=== PATIENT | male | born 1955 | race Caucasian/White ===

== ENCOUNTER 2016-11-04 17:08 | Emergency (ER) | payer OTHER ==
[~2016-11-04] VITALS: Ht 185.4 cm; Wt 90.7 kg
[2016-11-04 15:52] LABS: BASO % 0.6 % (0.0-1.0); EOS # 0.1 10*3/uL (0.0-0.4); HEMATOCRIT 30.3 % (42.0-52.0); HEMOGLOBIN 9.6 g/dl (14.0-18.0); LYMPH # 1.1 10*3/uL (1.3-4.4); LYMPH % 31.5 % (27.0-41.0); MEAN CELL VOLUME 93.2 fl (80.0-94.0); MEAN CORPUSCULAR HGB 29.5 pg (27.0-31.0); MEAN CORPUSCULAR HGB CONC 31.7 g/dl (33.0-37.0); MEAN PLATELET VOLUME 10.5 fl (9.6-12.3); MONO # 0.6 10*3/uL (0.1-1.0); MONO % 16.2 % (3.0-9.0); NEUT # 1.7 10*3/uL (2.3-7.9); NEUT % 49.4 % (47.0-73.0); PLATELET COUNT AUTOMATED 164 10*3/uL (130-400); RED BLOOD COUNT 3.25 10*6/uL (4.50-5.90); RED CELL DISTRI WIDTH 16.1 % (0-14.5); WHITE BLOOD COUNT 3.5 10*3/uL (4.8-10.8)
[2016-11-04 16:07] LABS: ALBUMIN 3.6 gm/dl (3.1-4.5); ALKALINE PHOSPHATASE 63 U/L (45-117); BILIRUBIN, TOTAL 0.1 mg/dl (0.2-1.0); BUN 36 mg/dl (7-24); CARBON DIOXIDE 20 mmol/L (21-32); CHLORIDE 111 mmol/L (98-107); EST GLOM FILT AFRICAN AMERICAN > 60 ml/min; GLUCOSE 165 mg/dL (65-99); SGOT/AST 15 IU/L (3-35); SGPT/ALT 23 U/L (12-78); SODIUM 140 mmol/L (136-145); TOTAL PROTEIN 7.5 gm/dL (6.4-8.2)
[2016-11-04 16:14] LABS: POTASSIUM 6.1 mmol/L (3.5-5.1)
[~2016-11-04 17:08] MED LIST: ABILIFY1 MG/ML PO; ACTOS15 MG PO; AMARYL2 MG PO; ASPIRIN325 M2 PO; CALCIUM 600 +1 EA11 PO; CALCIUM 600 +1 EAC2 PO; CALCIUM500 M1 PO; CLARITIN10 MG PO; CLOPIDOGREL75 MG PO; COREG6.25 MG PO; FLEXERIL10 MG PO; FUROSEMIDE40 MG PO; HYDROCODONE BIT1 T11 PO; IBU800 M1 PO; JARDIANCE10 MG PO; LANTUS100 U/ML SC; LEVOTHYROXIN0.075 MG PO; LISINOPRIL20 MG PO; LOPRESSOR HCT 21 TA1 PO; LOPRESSOR50 M1 PO; LOPRESSOR50 MG PO; METFORMIN1000 MG PO; METOPROLOL TART50 M1 PO; MOTRIN800 MG PO; NOVOLOG MI100 UNIT/1 SQ; PLAVIX75 MG PO; PRAVACHOL40 MG PO; PRAVASTATIN SOD40 MG PO; PREDNICOT10 MG PO; PREDNICOT20 MG PO; PRINIVIL10 MG PO; PRINIVIL20 M1 PO; PROAIR HFA0.09 MG/AC INH; ROBITUSSIN DM 105 ML PO; TRAMADOL HCL50 MG PO; VIBRAMYCIN100 MG PO; VITAMIN D PO; VITAMIN D350000 UNIT PO
[2016-11-04 17:12] VITALS: BP 121/68
[2016-11-04] MEDS ORDERED: GLIPIZIDE5 MG PO (17:55)
[2016-11-04] MEDS ORDERED: MEGACE40 MG PO (17:55)
[2016-11-04 18:00] LABS: HEMATOCRIT 28.3 % (42.0-52.0); HEMOGLOBIN 9.2 g/dl (14.0-18.0); MEAN CELL VOLUME 92.5 fl (80.0-94.0); MEAN CORPUSCULAR HGB 30.1 pg (27.0-31.0); MEAN CORPUSCULAR HGB CONC 32.5 g/dl (33.0-37.0); MEAN PLATELET VOLUME 9.7 fl (9.6-12.3); PLATELET COUNT AUTOMATED 152 10*3/uL (130-400); RED BLOOD COUNT 3.06 10*6/uL (4.50-5.90); RED CELL DISTRI WIDTH 16.2 % (0-14.5); WHITE BLOOD COUNT 3.5 10*3/uL (4.8-10.8)
[2016-11-04 18:23] LABS: BASOPHILS 1 % (0-1); EOSINOPHIL # 0.1 10*3/uL (0-0.4); EOSINOPHILS 2 % (1-4); MONOCYTE # 0.4 10*3/uL (0.1-1.0); NEUTROPHILS 57 % (47-73); TOTAL CELLS COUNTED 100 #CELLS
[2016-11-04 18:25] LABS: OVALOCYTES FEW; PLATELET SUFFICIENCY NORMAL (NORMAL); POLYCHROMASIA SLIGHT
[2016-11-04 18:34] LABS: ALBUMIN 3.6 gm/dl (3.1-4.5); ALKALINE PHOSPHATASE 57 U/L (45-117); BILIRUBIN, TOTAL 0.1 mg/dl (0.2-1.0); BUN 37 mg/dl (7-24); CARBON DIOXIDE 20 mmol/L (21-32); CHLORIDE 112 mmol/L (98-107); CKMB 2.5 ng/ml (0.5-3.6); CPK 50 U/L (39-308); EST GLOM FILT AFRICAN AMERICAN > 60 ml/min; LDH 230 U/L (87-241); MAGNESIUM 1.7 mg/dL (1.5-2.1); POTASSIUM 5.7 mmol/L (3.5-5.1); SGOT/AST 13 IU/L (3-35); SGPT/ALT 23 U/L (12-78); SODIUM 141 mmol/L (136-145); TOTAL PROTEIN 7.2 gm/dL (6.4-8.2)
[2016-11-04 18:38] LABS: GLUCOSE 49 mg/dL (65-99); TROPONIN I < 0.015 ng/ml (<0.045)
== END 2016-11-04 19:23 | disposition home or self-care (01) ==
LOC: EDSTATUS 17:08 → ED 17:09
PROVIDERS: Internal Medicine Hematology & Oncology; Physician Assistant
DX: E87.5 Hyperkalemia (principal); Z87.891 Personal history of nicotine dependence; Z95.1 Presence of aortocoronary bypass graft; Z79.899 Other long term (current) drug therapy

== ENCOUNTER 2017-01-22 10:35 | Emergency (ER) | payer OTHER ==
[~2017-01-22] VITALS: Ht 182.8 cm; Wt 90.7 kg
--- NOTE | ~2017-01-22 | EKG ---
[place], [place] ELECTROCARDIOGRAM REPORT NAME: TOBI GARIBAY UNIT #: [id number] ROOM: DOCTOR: MIGUEL THOMAS MD BIRTHDATE: [birth year] DOS: 01/22/2017 Time is 11:07:31. Normal sinus rhythm. Normal axis. Normal intervals. Nonspecific ST-T changes. MIGUEL THOMAS MD CM:EKGRPT:ELECTROCARDIOGRAM REPORT [id number] MIGUEL THOMAS MD
[~2017-01-22 10:35] MED LIST changes: +GLIPIZIDE5 MG PO; +MEGACE40 MG PO
[2017-01-22 11:16] LABS: MEAN CELL VOLUME 91.1 fl (80.0-94.0); MEAN CORPUSCULAR HGB 31.3 pg (27.0-31.0); MEAN CORPUSCULAR HGB CONC 34.3 g/dl (33.0-37.0); MEAN PLATELET VOLUME 11.4 fl (9.6-12.3); RED BLOOD COUNT 1.92 10*6/uL (4.50-5.90); RED CELL DISTRI WIDTH 16.5 % (0-14.5)
[2017-01-22 11:23] LABS: PROTHROMBIN TIME 10.3 SECONDS (9.0-12.4)
[2017-01-22 11:34] LABS: ALBUMIN 3.2 gm/dl (3.1-4.5); ALKALINE PHOSPHATASE 65 U/L (45-117); BILIRUBIN, TOTAL 0.2 mg/dl (0.2-1.0); BUN 72 mg/dl (7-24); CHLORIDE 112 mmol/L (98-107); CPK 23 U/L (39-308); EST GLOM FILT AFRICAN AMERICAN 41 ml/min; GLUCOSE 91 mg/dL (65-99); MAGNESIUM 1.6 mg/dL (1.5-2.1); POTASSIUM 4.4 mmol/L (3.5-5.1); SGOT/AST 13 IU/L (3-35); SGPT/ALT 18 U/L (12-78); SODIUM 136 mmol/L (136-145); TOTAL PROTEIN 6.8 gm/dL (6.4-8.2)
[2017-01-22 11:35] LABS: CKMB 0.9 ng/ml (0.5-3.6)
[2017-01-22 11:36] LABS: TROPONIN I < 0.015 ng/ml (<0.045)
[2017-01-22 11:37] LABS: CARBON DIOXIDE 7 mmol/L (21-32)
[2017-01-22 11:40] LABS: HEMATOCRIT 17.5 % (42.0-52.0); PLATELET COUNT AUTOMATED 6 10*3/uL (130-400); WHITE BLOOD COUNT 0.3 10*3/uL (4.8-10.8)
[2017-01-22 11:50] LABS: EOSINOPHILS 2 % (1-4); LYMPHOCYTE # 0.2 10*3/uL (1.3-4.4); NEUTROPHIL # 0.1 10*3/uL (2.3-7.9); NEUTROPHILS 20 % (47-73); TOTAL CELLS COUNTED 50 #CELLS
[2017-01-22 11:51] LABS: BURR CELLS FEW; PLATELET SUFFICIENCY LOW (NORMAL); POLYCHROMASIA SLIGHT; ROULEAUX SLIGHT
[2017-01-22 16:50] VITALS: BP 118/71
== END 2017-01-22 16:40 | disposition short-term general hospital (02) ==
LOC: ED 10:35
PROVIDERS: Registered Nurse
DX: C34.90 Malignant neoplasm of unspecified part of unspecified bronchus or lung (principal); R63.1 Polydipsia; R53.83 Other fatigue; I25.10 Atherosclerotic heart disease of native coronary artery without angina pectoris; I10 Essential (primary) hypertension; E13.10 Other specified diabetes mellitus with ketoacidosis without coma; E03.9 Hypothyroidism, unspecified; I25.2 Old myocardial infarction; Z87.891 Personal history of nicotine dependence; R53.81 Other malaise; D61.818 Other pancytopenia; Z79.899 Other long term (current) drug therapy

== ENCOUNTER 2017-02-26 13:44 | Inpatient (IN) | payer OTHER ==
[2017-02-26] VITALS (12 sets, daily range): BP systolic 112–168; BP diastolic 61–90
[~2017-02-26] VITALS: Ht 182.9 cm; Wt 87.7 kg
--- NOTE | ~2017-02-26 | PR ---
[place], [place] PROGRESS NOTE NAME: TOBI [facility]AR[facility]AY [facility] [id number] UNIT #: [id number] ROOM: 401 DOCTOR: JOSELO TERRELL MD BIRTHDATE: [birth year] DOS: 03/05/2017 SUBJECTIVE: The patient is doing much better. He feels much better. PHYSICAL EXAMINATION: GENERAL: Pleasant gentleman in no apparent distress. VITAL SIGNS: Stable. Afebrile. HEENT: Normocephalic, atraumatic. NECK AND THYROID: Supple. No JVD, thyromegaly, or lymphadenopathy. HEART: Normal S1, S2. Regular rate and rhythm. LUNGS: Clear to auscultation and percussion. ABDOMEN: Soft. Nontender, nondistended. Bowel sounds present. EXTREMITIES: Normal ROM. No clubbing. No edema. LABORATORY DATA: White count of 5.9, hemoglobin 10.7, hematocrit 31.9, platelet count of 85,000. ASSESSMENT: 1. Neutropenia, which is resolved. 2. Anemia of neoplastic disorder. 3. Thrombocytopenia, which is getting better. 4. Extensive small cell lung cancer. PLAN: His counts are getting much better. From hematological point of view, the patient can go home and we will follow him as an outpatient. Discussed with the patient in detail. JOSELO TERRELL MD CM:PNTRANS [id number] JOSELO TERRELL MD 03/05/17 0852 interface
--- NOTE | ~2017-02-26 | PR ---
[place], [place] PROGRESS NOTE [id number] UNIT #: [id number] [facility]OM: [facility] DOCTOR: JOSELO TERRELL MD BIRTHDATE: [birth year] DOS: 02/20/2017 SUBJECTIVE: The patient is doing much better. He is alert and responsive. REVIEW OF SYSTEMS HEENT: No trouble swallowing. No double vision. No loss of vision. No pain. ENT AND RESPIRATORY: No wheeze. No change in voice. No cough. No shortness of breath. No coughing up blood. No epistaxis. CARDIOLOGIC: No chest pain. No dizziness. No irregular heartbeat. No leg edema. No palpitations. No shortness of breath. HEMATOLOGIC AND LYMPH: No past transfusion. No fatigue. No loss of appetite. No easy bruising. GASTROENTEROLOGIC: No change in bowel habits. No vomiting blood. No abdominal cramping. No nausea. No vomiting. No diarrhea. No constipation. No blood in stool. MALE REPRODUCTIVE: No testicular pain. No penile discharge. MUSCULOSKELETAL: No back pain. No muscle pain or weakness. No tingling/numbness. UROLOGIC: No pain with urination. No difficulty urinating. No frequent urination. NEUROLOGIC: No burning pain in feet. No trouble with coordination. No loss of consciousness. No headache. No tingling/numbness. No memory loss. PHYSICAL EXAMINATION GENERAL: Pleasant gentleman in no apparent distress. VITAL SIGNS: Blood pressure 133/79, respirations 22, pulse 92, temperature 97.8. HEENT: Normocephalic, atraumatic NECK AND THYROID: Supple. No JVD, thyromegaly, or lymphadenopathy. HEART: Normal S1, S2. Regular rate and rhythm. LUNGS: Clear to auscultation and percussion. ABDOMEN: Soft. Nontender, nondistended. Bowel sounds present. EXTREMITIES: Normal ROM. No clubbing. No edema. LABORATORY DATA: Sodium 129, potassium 3.8, chloride 100, bicarbonate 16. White count of ____, hemoglobin 8.6, hematocrit 24.9, platelet count of 25,000. His blood cultures were negative so far. ASSESSMENT: 1. Pancytopenia. I will take him to chemotherapy. 2. Extensive small cell lung cancer. 3. Neutropenic fever. 4. Tachycardia. PLAN: The patient will continue growth factors. His hemoglobin and hematocrit is low. If it drops further, then he may need transfusion. In the meantime, overall he is doing better. We will keep a close watch on him at this time and follow the counts till close to the decent level before discharge. I had a detailed discussion with the patient about it, he seemed to understand it. [place], [place] PROGRESS NOTE NAME: TOBI GARIBAY [place] UNIT #: [id number] ROOM: [facility] DOCTOR: JOSELO TERRELL MD BIRTHDATE: [birth year] JOSELO TERRELL MD CM:PNTRANS [id number] JOSELO TERRELL MD 03/01/17 0136 interface
--- NOTE | ~2017-02-26 | PR ---
[place], [place] PROGRESS NOTE NAME: TOBI GARIBAY UNIT #: [id number] ROOM: 401 DOCTOR: ANGELIKA POWELL,NOVEMBER BIRTHDATE: [birth year] DOS: 03/02/2017 SUBJECTIVE: The patient is 61-year-old male who is being followed for a neutropenic fever. His MRSA screen was positive. Blood cultures were all negative. He is alert and oriented, feels well. He has been afebrile. Denies any nausea, vomiting or diarrhea. No pain. No cough or shortness of breath. No rash or itch. WBCs are up to 1.6, platelets 47, BUN 17, creatinine 0.92. He is on cefepime empirically for neutropenic fever. CURRENT MEDICATIONS: Bactroban to nares, Zocor, Flomax, Megace, Zestril, Os-Alejandro, Glucophage, Protonix, Glucotrol, Leukine, cefepime, insulin, Restoril, Zofran. PHYSICAL EXAMINATION: VITAL SIGNS: Temperature 97.8, pulse 94, respirations 18, BP 127/76. GENERAL: A 61-year-old male in no acute distress. HEENT: Normocephalic, no thrush. CHEST: Right chest, he has a MediPort that is accessed. LUNGS: Lungs with rales at bilateral bases. Respirations even and unlabored. HEART: Regular rhythm. No murmur appreciated. ABDOMEN: Soft, nontender. EXTREMITIES: No edema, deformity or cyanosis. SKIN: Warm, dry, free of rashes. IMPRESSION: Neutropenic fever, which is improving. WBCs are up to 1.6, neutrophils 800. PLAN: Continue the cefepime. Case discussed with Dr. Melisa Salamanca. MARGARET CARNEY CNP MELISA SALAMANCA MD CM:PNTRANS [id number] NOVEMBER ANGELIKA POWELL 03/03/17 0003 interface
--- NOTE | ~2017-02-26 | PR ---
[place], [place] PROGRESS NOTE NAME: TOBI GARIBAY [facility] #: [id number] UNIT #: [id number] ROOM: 401 DOCTOR: JOSELO TERRELL MD BIRTHDATE: [birth year] DOS: 03/04/2017 SUBJECTIVE: The patient was seen on 03/04/2017. The patient is doing better. He is feeling good. REVIEW OF SYSTEMS HEENT: No trouble swallowing. No double vision. No loss of vision. No pain. ENT AND RESPIRATORY: No wheeze. No change in voice. No cough. No shortness of breath. No coughing up blood. No epistaxis. CARDIOLOGIC: No chest pain. No dizziness. No irregular heartbeat. No leg edema. No palpitations. No shortness of breath. HEMATOLOGIC AND LYMPH: No past transfusion. No fatigue. No loss of appetite. No easy bruising. GASTROENTEROLOGIC: No change in bowel habits. No vomiting blood. No abdominal cramping. No nausea. No vomiting. No diarrhea. No constipation. No blood in stool. MALE REPRODUCTIVE: No testicular pain. No penile discharge. MUSCULOSKELETAL: No back pain. No muscle pain or weakness. No tingling/numbness. UROLOGIC: No pain with urination. No difficulty urinating. No frequent urination. NEUROLOGIC: No burning pain in feet. No trouble with coordination. No loss of consciousness. No headache. No tingling/numbness. No memory loss. PHYSICAL EXAMINATION: GENERAL: Pleasant gentleman in no apparent distress. VITAL SIGNS: Stable, afebrile. HEENT: Normocephalic, atraumatic NECK AND THYROID: Supple. No JVD, thyromegaly, or lymphadenopathy. HEART: Normal S1, S2. Regular rate and rhythm. LUNGS: Clear to auscultation and percussion. ABDOMEN: Soft. Nontender, nondistended. Bowel sounds present. EXTREMITIES: Normal ROM. No clubbing. No edema. LABORATORY DATA: Sodium 128, potassium 4.3, chloride 98, bicarbonate 18, creatinine of 0.83. EGFR is more than 60. White count 2.7, hemoglobin 9.6, hematocrit 28.7, platelet count 67,000. ASSESSMENT: 1. Pancytopenia, which is getting better. 2. Extensive small cell lung cancer. 3. Anemia of neoplastic disorder. PLAN: I will continue the growth factors, probably he is doing good. His cultures are negative. Home soon. Discussed with the patient. [place], [place] PROGRESS NOTE NAME: TOBI GARIBAY UNIT #: [id number] ROOM: [facility] DOCTOR: JOSELO TERRELL MD BIRTHDATE: [birth year] JOSELO TERRELL MD CM:PNTRANS [id number] JOSELO TERRELL MD 03/04/17 1436 interface
[2017-02-26] MEDS ORDERED: PANTOPRAZOLE SO40 MG PO (14:09)
[2017-02-26] MEDS ORDERED: TAMSULOSIN HCL0.4 MG PO (14:10)
[2017-02-26] MEDS ORDERED: SODIUM BICARBONATE PO (14:10)
[2017-02-26 15:16] LABS: HEMOGLOBIN 6.2 g/dl (14.0-18.0); MEAN CELL VOLUME 86.5 fl (80.0-94.0); MEAN CORPUSCULAR HGB 29.8 pg (27.0-31.0); MEAN CORPUSCULAR HGB CONC 34.4 g/dl (33.0-37.0); MEAN PLATELET VOLUME 12.5 fl (9.6-12.3); RED BLOOD COUNT 2.08 10*6/uL (4.50-5.90); RED CELL DISTRI WIDTH 15.2 % (0-14.5)
[2017-02-26 15:22] LABS: WHITE BLOOD COUNT 0.3 10*3/uL (4.8-10.8)
[2017-02-26 15:23] LABS: PLATELET COUNT AUTOMATED 9 10*3/uL (130-400)
[2017-02-26 15:29] LABS: ALBUMIN 2.6 gm/dl (3.1-4.5); ALKALINE PHOSPHATASE 251 U/L (45-117); BILIRUBIN, TOTAL 0.3 mg/dl (0.2-1.0); BUN 25 mg/dl (7-24); CARBON DIOXIDE 15 mmol/L (21-32); CHLORIDE 103 mmol/L (98-107); EST GLOM FILT AFRICAN AMERICAN > 60 ml/min; GLUCOSE 303 mg/dL (65-99); POTASSIUM 3.9 mmol/L (3.5-5.1); SGOT/AST 494 IU/L (3-35); SGPT/ALT 760 U/L (12-78); SODIUM 130 mmol/L (136-145); TOTAL PROTEIN 6.6 gm/dL (6.4-8.2)
[2017-02-26 16:25] LABS: EOSINOPHILS 2 % (1-4); LYMPHOCYTE # 0.2 10*3/uL (1.3-4.4); NEUTROPHIL # 0.1 10*3/uL (2.3-7.9); NEUTROPHILS 42 % (47-73); TOTAL CELLS COUNTED 100 #CELLS
[2017-02-26 16:26] LABS: PLATELET SUFFICIENCY LOW (NORMAL)
[2017-02-26] MEDS ORDERED: PRINIVIL10 MG PO (17:13)
[2017-02-27] VITALS (12 sets, daily range): BP systolic 119–152; BP diastolic 68–85
[2017-02-27 02:28] LABS: HEMATOCRIT 20.9 % (42.0-52.0); HEMOGLOBIN 6.9 g/dl (14.0-18.0)
[2017-02-27 07:39] LABS: HEMATOCRIT 24.1 % (42.0-52.0); HEMOGLOBIN 8.2 g/dl (14.0-18.0); MEAN CELL VOLUME 84.9 fl (80.0-94.0); MEAN CORPUSCULAR HGB 28.9 pg (27.0-31.0); MEAN PLATELET VOLUME 11.1 fl (9.6-12.3); RED BLOOD COUNT 2.84 10*6/uL (4.50-5.90); RED CELL DISTRI WIDTH 15.3 % (0-14.5)
[2017-02-27 08:05] LABS: ALBUMIN 2.5 gm/dl (3.1-4.5); ALKALINE PHOSPHATASE 224 U/L (45-117); BILIRUBIN, TOTAL 0.5 mg/dl (0.2-1.0); BUN 22 mg/dl (7-24); CARBON DIOXIDE 17 mmol/L (21-32); CHLORIDE 101 mmol/L (98-107); EST GLOM FILT AFRICAN AMERICAN > 60 ml/min; GLUCOSE 219 mg/dL (65-99); PHOSPHOROUS 2.2 mg/dL (2.5-4.9); POTASSIUM 3.6 mmol/L (3.5-5.1); SGOT/AST 132 IU/L (3-35); SGPT/ALT 536 U/L (12-78); SODIUM 131 mmol/L (136-145); TOTAL PROTEIN 6.9 gm/dL (6.4-8.2)
[2017-02-27 08:46] LABS: LYMPHOCYTE # 0.2 10*3/uL (1.3-4.4); MONOCYTE # 0.1 10*3/uL (0.1-1.0); NEUTROPHIL # 0.1 10*3/uL (2.3-7.9); NEUTROPHILS 37 % (47-73); PLATELET SUFFICIENCY LOW (NORMAL); TOTAL CELLS COUNTED 100 #CELLS
[2017-02-27 08:49] LABS: PLATELET COUNT AUTOMATED 21 10*3/uL (130-400); WHITE BLOOD COUNT 0.4 10*3/uL (4.8-10.8)
[2017-02-27 09:26] LABS: INTERNATIONAL NORM RATIO 1.1 (2.0-3.5); PROTHROMBIN TIME 11.8 SECONDS (9.0-12.4)
[2017-02-28] VITALS: BP 131/86
[2017-02-28 04:00] VITALS: BP 130/82
[2017-02-28 06:05] LABS: HEMATOCRIT 24.9 % (42.0-52.0); HEMOGLOBIN 8.6 g/dl (14.0-18.0); MEAN CELL VOLUME 84.4 fl (80.0-94.0); MEAN CORPUSCULAR HGB 29.2 pg (27.0-31.0); MEAN CORPUSCULAR HGB CONC 34.5 g/dl (33.0-37.0); RED BLOOD COUNT 2.95 10*6/uL (4.50-5.90); RED CELL DISTRI WIDTH 15.6 % (0-14.5)
[2017-02-28 06:21] LABS: PLATELET COUNT AUTOMATED 25 10*3/uL (130-400); WHITE BLOOD COUNT 0.8 10*3/uL (4.8-10.8)
[2017-02-28 06:42] LABS: EOSINOPHILS 6 % (1-4); LYMPHOCYTE # 0.2 10*3/uL (1.3-4.4); MONOCYTE # 0.1 10*3/uL (0.1-1.0); NEUTROPHIL # 0.4 10*3/uL (2.3-7.9); NEUTROPHILS 48 % (47-73); PLATELET SUFFICIENCY LOW (NORMAL); ROULEAUX MODERATE; TOTAL CELLS COUNTED 50 #CELLS; TOXIC GRANULATION MODERATE
[2017-02-28 06:43] LABS: BURR CELLS FEW
[2017-02-28 08:00] VITALS: BP 133/79
[2017-02-28 08:38] LABS: ALBUMIN 2.4 gm/dl (3.1-4.5); ALKALINE PHOSPHATASE 184 U/L (45-117); BILIRUBIN, TOTAL 0.3 mg/dl (0.2-1.0); BUN 21 mg/dl (7-24); CARBON DIOXIDE 16 mmol/L (21-32); CHLORIDE 100 mmol/L (98-107); EST GLOM FILT AFRICAN AMERICAN > 60 ml/min; GLUCOSE 201 mg/dL (65-99); PHOSPHOROUS 2.1 mg/dL (2.5-4.9); POTASSIUM 3.8 mmol/L (3.5-5.1); SGOT/AST 29 IU/L (3-35); SGPT/ALT 343 U/L (12-78); SODIUM 129 mmol/L (136-145); TOTAL PROTEIN 6.6 gm/dL (6.4-8.2)
[2017-02-28 12:00] VITALS: BP 114/71; BP 116/70
[2017-02-28 16:00] VITALS: BP 138/85
[2017-02-28 20:00] VITALS: BP 138/82
[2017-03-01] VITALS: BP 121/79
[2017-03-01 04:00] VITALS: BP 130/83
[2017-03-01 05:54] LABS: HEMATOCRIT 25.9 % (42.0-52.0); HEMOGLOBIN 8.8 g/dl (14.0-18.0); MEAN CELL VOLUME 84.1 fl (80.0-94.0); MEAN CORPUSCULAR HGB 28.6 pg (27.0-31.0); MEAN PLATELET VOLUME 11.6 fl (9.6-12.3); PLATELET COUNT AUTOMATED 32 10*3/uL (130-400); RED BLOOD COUNT 3.08 10*6/uL (4.50-5.90); RED CELL DISTRI WIDTH 15.7 % (0-14.5)
[2017-03-01 06:13] LABS: WHITE BLOOD COUNT 1.2 10*3/uL (4.8-10.8)
[2017-03-01 06:21] LABS: ATYPICAL LYMPHS 1 % (0-0); BURR CELLS FEW; EOSINOPHIL # 0.1 10*3/uL (0-0.4); EOSINOPHILS 8 % (1-4); LYMPHOCYTE # 0.3 10*3/uL (1.3-4.4); METAMYELOCYTES 1 % (0-0); MONOCYTE # 0.2 10*3/uL (0.1-1.0); NEUTROPHIL # 0.5 10*3/uL (2.3-7.9); NEUTROPHILS 45 % (47-73); PLATELET SUFFICIENCY LOW (NORMAL); ROULEAUX MODERATE; TOTAL CELLS COUNTED 100 #CELLS
[2017-03-01 08:00] VITALS: BP 133/87
[2017-03-01 12:00] VITALS: BP 118/77
[2017-03-01 16:00] VITALS: BP 137/74
[2017-03-01 20:00] VITALS: BP 128/72
[2017-03-02] VITALS: BP 118/71
[2017-03-02 07:04] LABS: HEMATOCRIT 26.8 % (42.0-52.0); HEMOGLOBIN 9.1 g/dl (14.0-18.0); MEAN CORPUSCULAR HGB 28.5 pg (27.0-31.0); MEAN PLATELET VOLUME 11.9 fl (9.6-12.3); PLATELET COUNT AUTOMATED 47 10*3/uL (130-400); RED BLOOD COUNT 3.19 10*6/uL (4.50-5.90); RED CELL DISTRI WIDTH 15.7 % (0-14.5)
[2017-03-02 07:06] LABS: WHITE BLOOD COUNT 1.6 10*3/uL (4.8-10.8)
[2017-03-02 07:17] LABS: BUN 17 mg/dl (7-24); CARBON DIOXIDE 19 mmol/L (21-32); CHLORIDE 100 mmol/L (98-107); EST GLOM FILT AFRICAN AMERICAN > 60 ml/min; GLUCOSE 266 mg/dL (65-99); MAGNESIUM 1.2 mg/dL (1.5-2.1); PHOSPHOROUS 2.1 mg/dL (2.5-4.9); POTASSIUM 4.3 mmol/L (3.5-5.1); SODIUM 128 mmol/L (136-145)
[2017-03-02 07:38] LABS: EOSINOPHILS 2 % (1-4); LYMPHOCYTE # 0.3 10*3/uL (1.3-4.4); MONOCYTE # 0.4 10*3/uL (0.1-1.0); NEUTROPHIL # 0.8 10*3/uL (2.3-7.9); NEUTROPHILS 53 % (47-73); PLATELET SUFFICIENCY LOW (NORMAL); TOTAL CELLS COUNTED 100 #CELLS
[2017-03-02 08:00] VITALS: BP 133/84
[2017-03-02 12:00] VITALS: BP 127/76
[2017-03-02 16:00] VITALS: BP 139/80
[2017-03-02 20:00] VITALS: BP 124/76
[2017-03-03] VITALS: BP 122/75
[2017-03-03 05:57] LABS: HEMATOCRIT 27.2 % (42.0-52.0); HEMOGLOBIN 9.2 g/dl (14.0-18.0); MEAN CELL VOLUME 84.7 fl (80.0-94.0); MEAN CORPUSCULAR HGB 28.7 pg (27.0-31.0); MEAN CORPUSCULAR HGB CONC 33.8 g/dl (33.0-37.0); MEAN PLATELET VOLUME 11.6 fl (9.6-12.3); PLATELET COUNT AUTOMATED 52 10*3/uL (130-400); RED BLOOD COUNT 3.21 10*6/uL (4.50-5.90); RED CELL DISTRI WIDTH 15.7 % (0-14.5); WHITE BLOOD COUNT 2.5 10*3/uL (4.8-10.8)
[2017-03-03 06:05] LABS: BUN 18 mg/dl (7-24); CARBON DIOXIDE 18 mmol/L (21-32); CHLORIDE 98 mmol/L (98-107); EST GLOM FILT AFRICAN AMERICAN > 60 ml/min; GLUCOSE 271 mg/dL (65-99); MAGNESIUM 1.3 mg/dL (1.5-2.1); PHOSPHOROUS 2.2 mg/dL (2.5-4.9); POTASSIUM 4.6 mmol/L (3.5-5.1); SODIUM 128 mmol/L (136-145)
[2017-03-03 06:35] LABS: EOSINOPHIL # 0.1 10*3/uL (0-0.4); EOSINOPHILS 2 % (1-4); LYMPHOCYTE # 0.4 10*3/uL (1.3-4.4); METAMYELOCYTES 3 % (0-0); MONOCYTE # 0.3 10*3/uL (0.1-1.0); MYELOCYTES 1 % (0-0); NEUTROPHIL # 1.7 10*3/uL (2.3-7.9); NEUTROPHILS 66 % (47-73); TOTAL CELLS COUNTED 100 #CELLS
[2017-03-03 06:36] LABS: PLATELET SUFFICIENCY LOW (NORMAL)
[2017-03-03 08:00] VITALS: BP 125/69
[2017-03-03 12:00] VITALS: BP 132/67
[2017-03-03 16:00] VITALS: BP 111/65
[2017-03-03 20:00] VITALS: BP 121/77
[2017-03-04] VITALS: BP 137/76
[2017-03-04 06:31] LABS: HEMATOCRIT 28.7 % (42.0-52.0); HEMOGLOBIN 9.6 g/dl (14.0-18.0); MEAN CELL VOLUME 85.4 fl (80.0-94.0); MEAN CORPUSCULAR HGB 28.6 pg (27.0-31.0); MEAN CORPUSCULAR HGB CONC 33.4 g/dl (33.0-37.0); MEAN PLATELET VOLUME 11.8 fl (9.6-12.3); PLATELET COUNT AUTOMATED 67 10*3/uL (130-400); RED BLOOD COUNT 3.36 10*6/uL (4.50-5.90); RED CELL DISTRI WIDTH 15.9 % (0-14.5); WHITE BLOOD COUNT 2.7 10*3/uL (4.8-10.8)
[2017-03-04 06:59] LABS: BUN 18 mg/dl (7-24); CARBON DIOXIDE 19 mmol/L (21-32); CHLORIDE 97 mmol/L (98-107); EST GLOM FILT AFRICAN AMERICAN > 60 ml/min; GLUCOSE 247 mg/dL (65-99); MAGNESIUM 1.6 mg/dL (1.5-2.1); PHOSPHOROUS 3.3 mg/dL (2.5-4.9); POTASSIUM 5.3 mmol/L (3.5-5.1); SODIUM 128 mmol/L (136-145)
[2017-03-04 07:08] LABS: ATYPICAL LYMPHS 1 % (0-0); EOSINOPHILS 1 % (1-4); LYMPHOCYTE # 0.6 10*3/uL (1.3-4.4); METAMYELOCYTES 3 % (0-0); MONOCYTE # 0.8 10*3/uL (0.1-1.0); MYELOCYTES 6 % (0-0); NEUTROPHILS 37 % (47-73); OVALOCYTES FEW; PLATELET SUFFICIENCY LOW (NORMAL); POLYCHROMASIA SLIGHT; PROMYELOCYTES 2 % (0-0); TOTAL CELLS COUNTED 100 #CELLS; TOXIC GRANULATION MODERATE
[2017-03-04 08:00] VITALS: BP 116/72
[2017-03-04 12:00] VITALS: BP 134/73
[2017-03-04] MEDS ORDERED: CEFEPIME2 GM/100 M IV (15:08)
[2017-03-04] MEDS ORDERED: LEUKINE SC (15:08)
[2017-03-04 16:00] VITALS: BP 122/71; BP 129/71
[2017-03-04 20:00] VITALS: BP 129/68
[2017-03-05] VITALS: BP 128/77
[2017-03-05 06:53] LABS: HEMATOCRIT 31.9 % (42.0-52.0); HEMOGLOBIN 10.7 g/dl (14.0-18.0); MEAN CELL VOLUME 84.6 fl (80.0-94.0); MEAN CORPUSCULAR HGB 28.4 pg (27.0-31.0); MEAN CORPUSCULAR HGB CONC 33.5 g/dl (33.0-37.0); MEAN PLATELET VOLUME 11.1 fl (9.6-12.3); PLATELET COUNT AUTOMATED 85 10*3/uL (130-400); RED BLOOD COUNT 3.77 10*6/uL (4.50-5.90); RED CELL DISTRI WIDTH 15.6 % (0-14.5); WHITE BLOOD COUNT 5.9 10*3/uL (4.8-10.8)
[2017-03-05 07:26] LABS: EOSINOPHIL # 0.1 10*3/uL (0-0.4); EOSINOPHILS 1 % (1-4); LYMPHOCYTE # 0.4 10*3/uL (1.3-4.4); METAMYELOCYTES 5 % (0-0); MONOCYTE # 0.7 10*3/uL (0.1-1.0); MYELOCYTES 2 % (0-0); NEUTROPHIL # 4.4 10*3/uL (2.3-7.9); NEUTROPHILS 74 % (47-73); PLATELET SUFFICIENCY LOW (NORMAL); TOTAL CELLS COUNTED 100 #CELLS; TOXIC GRANULATION MODERATE
[2017-03-05 07:27] LABS: POLYCHROMASIA SLIGHT
[2017-03-05 08:00] VITALS: BP 138/82
[2017-03-05] MEDS ORDERED: METFORMIN1000 MG PO (11:04)
[2017-03-05 12:00] VITALS: BP 146/92
== END 2017-03-05 15:15 | disposition home health service (06) | DRG 808 ==
LOC: ED 13:44 → EDHOLD 15:52 → ICCU 15:52 → EDHOLD 16:16 → 5E 16:19 → ICCU 18:15 → 4E 03-01 10:42
PROVIDERS: Hospitalist; Internal Medicine; Internal Medicine Hematology & Oncology; Internal Medicine Hospice and Palliative Medicine; Nurse Practitioner Family; Student in an Organized Health Care Education/Training Program
PROC: 30233R1 Transfusion of Nonautologous Platelets into Peripheral Vein, Percutaneous Approach (ICD-10-PCS; principal; 2017-02-26)
PROC: 30233N1 Transfusion of Nonautologous Red Blood Cells into Peripheral Vein, Percutaneous Approach (ICD-10-PCS; 2017-02-26)
DX: D61.810 Antineoplastic chemotherapy induced pancytopenia (principal); R65.11 Systemic inflammatory response syndrome (SIRS) of non-infectious origin with acute organ dysfunction; N17.0 Acute kidney failure with tubular necrosis; J96.00 Acute respiratory failure, unspecified whether with hypoxia or hypercapnia; E43 Unspecified severe protein-calorie malnutrition; I25.810 Atherosclerosis of coronary artery bypass graft(s) without angina pectoris; E83.39 Other disorders of phosphorus metabolism; E87.1 Hypo-osmolality and hyponatremia; C34.92 Malignant neoplasm of unspecified part of left bronchus or lung; E13.65 Other specified diabetes mellitus with hyperglycemia; I10 Essential (primary) hypertension; F32.9 Major depressive disorder, single episode, unspecified; E03.9 Hypothyroidism, unspecified; R50.81 Fever presenting with conditions classified elsewhere; R74.0 Nonspecific elevation of levels of transaminase and lactic acid dehydrogenase [LDH]; I25.2 Old myocardial infarction; Z95.1 Presence of aortocoronary bypass graft; Z95.818 Presence of other cardiac implants and grafts; Z87.891 Personal history of nicotine dependence; Z68.37 Body mass index [BMI] 37.0-37.9, adult; Z80.9 Family history of malignant neoplasm, unspecified; Z79.4 Long term (current) use of insulin; Z80.43 Family history of malignant neoplasm of testis; Z82.49 Family history of ischemic heart disease and other diseases of the circulatory system; Z83.3 Family history of diabetes mellitus; Z79.899 Other long term (current) drug therapy; Z92.21 Personal history of antineoplastic chemotherapy; D64.9 Anemia, unspecified

== ENCOUNTER 2017-03-25 13:03 | Inpatient (IN) | payer OTHER ==
[2017-03-25] VITALS (7 sets, daily range): BP systolic 80–123; BP diastolic 43–71
[~2017-03-25] VITALS: Ht 185.4 cm; Wt 76.7 kg
--- NOTE | ~2017-03-25 | PR ---
[place], [place] PROGRESS NOTE NAME: [facility]ARIBAY [facility] [id number] UNIT #: [id number] ROOM: 401 DOCTOR: JOSELO TERRELL MD BIRTHDATE: [birth year] DOS: 03/31/2017 SUBJECTIVE: The patient is doing better. He is awake, alert at this point. Denies any bleeding, bruising, petechiae, etc. PHYSICAL EXAMINATION: GENERAL: Pleasant gentleman in no apparent distress. VITAL SIGNS: Blood pressure 130/68, respirations 18, pulse 96, temperature 98.1. HEENT: Normocephalic, atraumatic. NECK AND THYROID: Supple. No JVD, thyromegaly, or lymphadenopathy. HEART: Normal S1, S2. Regular rate and rhythm. LUNGS: Clear to auscultation and percussion. ABDOMEN: Soft. Nontender, nondistended. Bowel sounds present. EXTREMITIES: Normal ROM. No clubbing. No edema. LABORATORY DATA: APTT 54.9, white count 1.0, hemoglobin 8.3, hematocrit 25.2, platelet count 18,000, ANC 400. ASSESSMENT: 1. Pancytopenia secondary to chemotherapy. 2. Pulmonary embolus. 3. Thrombocytopenia. PLAN: The patient will be switched from Argatroban to Xarelto. Closely watch platelet counts. He will be also getting 6 units of platelets. I expect the counts to improve. In the meantime, continue growth factors and transfusions depending upon the counts. I had detailed discussion with the patient in the morning. JOSELO TERRELL MD CM:PNTRANS [phone] JOSELO TERRELL MD 04/01/17 0022 interface
--- NOTE | ~2017-03-25 | PR ---
[place], [place] PROGRESS NOTE NAME: TOBI GARIBAY UNIT #: [id number] ROOM: 401 DOCTOR: SCOTTIE MORRELL MD BIRTHDATE: [birth year] DOS: 03/31/2017 SUBJECTIVE: The patient has been noted comfortable. Denies symptoms of hematemesis, melena or hematuria. Denies symptoms of coughing, sputum expectoration or acute shortness of breath, comfortably resting on the bed. He was continued getting intravenous argatroban for the medical management of pulmonary embolism with thrombocytopenia. OBJECTIVE: VITAL SIGNS: Normal temperature, respirations 18, heart rate 98, blood pressure 129/77. Pulse oxygen saturation on room air was normal according to 100% saturation. HEENT: Shows head was atraumatic. Eyes nonicterus. NECK: Supple. CARDIOVASCULAR: S1 and S2 is audible. LUNGS: The patient was noted without any wheeze or crackles. ABDOMEN: Soft, nontender. LABORATORY DATA: CBC today: WBC count 1000, hemoglobin 8.3, hematocrit 25.2, and platelet count 18,000. The differential was noted, total neutrophils of 36% and 18% eosinophils were also noted. PTT was maintained as in the therapeutic range with argatroban as 54.9. IMPRESSION: 1. The patient has been noted with severe pancytopenia including thrombocytopenia with acute nonsegmental pulmonary embolism in the right lower pulmonary arterial branches. 2. History of small cell cancer with chemotherapy as well. No severe debility was also noted. PLAN OF TREATMENT: The patient will be getting a platelet transfusion today since the platelet count noted less than 10,000 to reduce any spontaneous bleeding. Continuation of the argatroban. The patient to maintain a therapeutic INR. Monitor thrombocytopenia, which most likely is decreased secondary to past chemotherapy concurring noting valerie and should improve in the next few days. Continuation of the other growth factor for the medical management of severe absolute neutropenia, which has been noted on today's labs. Continue neutropenic precautions. Supportive care, plan of therapy, other management. [place], [place] PROGRESS NOTE NAME: TOBI GARIBAY UNIT #: [id number] ROOM: 401 DOCTOR: SCOTTIE MORRELL MD BIRTHDATE: [birth year] SCOTTIE TSANG MD CM:PNTRANS 1338 SCOTTIE PENA MD 04/01/17 0035 interface
--- NOTE | ~2017-03-25 | PR ---
[place], [place] PROGRESS NOTE [id number] UNIT #: [id number] ROOM: 401 DOCTOR: JOSELO TERRELL MD BIRTHDATE: [birth year] DOS: 03/28/2017 SUBJECTIVE: The patient is doing much better. He is awake, alert and responsive. REVIEW OF SYSTEMS: HEENT: No trouble swallowing. No double vision. No loss of vision. No pain. ENT AND RESPIRATORY: No wheeze. No change in voice. No cough. No shortness of breath. No coughing up blood. No epistaxis. CARDIOLOGIC: No chest pain. No dizziness. No irregular heartbeat. No leg edema. No palpitations. No shortness of breath. HEMATOLOGIC AND LYMPH: No past transfusion. No fatigue. No loss of appetite. No easy bruising. GASTROENEROLOGIC: No change in bowel habits. No vomiting blood. No abdominal cramping. No nausea. No vomiting. No diarrhea. No constipation. No blood in stool. MALE REPRODUCTIVE: No testicular pain. No penile discharge. MUSCULOSKELETAL: No back pain. No muscle pain or weakness. No tingling/numbness. UROLOGIC: No pain with urination. No difficulty urinating. No frequent urination. NEUROLOGIC: No burning pain in feet. No trouble with coordination. No loss of consciousness. No headache. No tingling/numbness. No memory loss. PHYSICAL EXAMINATION: GENERAL: Pleasant gentleman in no apparent distress. VITAL SIGNS: Stable. He is afebrile. HEENT: Normocephalic, atraumatic. NECK AND THYROID: Supple. No JVD, thyromegaly, or lymphadenopathy. HEART: Normal S1, S2. Regular rate and rhythm. LUNGS: Clear to auscultation and percussion. ABDOMEN: Soft. Nontender, nondistended. Bowel sounds present. EXTREMITIES: Normal ROM. No clubbing. No edema. LABORATORY DATA: White count of 1.5, hemoglobin 8.9, hematocrit 26.6, platelet count of 41,000, ANC of 1100, glucose of 198, BUN of 38, EGFR more than 58. Sodium 132, potassium 4.8, chloride 102, bicarbonate 21, calcium 8.1. ASSESSMENT: 1. Extensive small cell lung cancer, undergoing chemotherapy. 2. Pancytopenia secondary to chemotherapy. 3. Anemia of neoplastic disorder, status post 2 units of packed RBCs. PLAN: Overall, he is doing much better. His counts have improved. I will continue the growth factors. He is also getting DVT prophylaxis with heparin. Once the counts feel better, then he can be discharged. I had a detailed discussion with the patient about it, seemed to understand. Ample time was given to the patient to ask me questions. [place], [place] PROGRESS NOTE NAME: TOBI GARIBAY UNIT #: [id number] ROOM: 401 DOCTOR: JOSELO TERRELL MD BIRTHDATE: [birth year] JOSELO TERRELL MD CM:PNTRANS 2 4 JOSELO TERRELL MD 03/28/1755 interface
--- NOTE | ~2017-03-25 | CON ---
[place], [place] REPORT OF CONSULTATION [id number] UNIT #: [id number] ROOM: 401 DOCTOR: SCOTTIE MORRELL MD BIRTHDATE: [birth year] DOS: 03/30/2017 PULMONARY CONSULTATION, EVALUATION AN MANAGEMENT. CONSULTATION REQUESTED BY: Hospitalist services. REASON FOR CONSULTATION: For assessment of pulmonary embolism. HISTORY OF PRESENT ILLNESS: This is a 61-year-old white male who has been known to me from the past. The patient has been diagnosed with small cell lung cancer in 2016 and was undergoing chemotherapy with Dr. Morocho. The patient has been admitted to the hospital under care of the hospitalist service on 03/25/2017. The patient presented to the hospital. The patient has been noted severe anemia, requiring blood transfusion. He has been admitted to the hospital as a CT of the chest that was completed on 03/28/2017 that shows evidence of pulmonary embolism. The patient denies symptoms of acute shortness of breath at this time. Denies symptoms of chest pain or hemoptysis. The patient noted severe thrombocytopenia at this time receiving intravenous Argatroban for anticoagulation to manage the pulmonary embolism. He denies symptoms of hemoptysis. Denies symptoms of wheezing. There were symptoms of acute chest pain noted at this time. He has been comfortably sitting with the chest rather on the bed at this time for further assessment. REVIEW OF SYSTEMS: GENERAL: She denies any symptoms of fever or chills, fatigue and tiredness at this time. EYES: Denies any burning, redness, or tenderness. EARS, NOSE, THROAT SYMPTOMS: Denies sore throat, hoarseness, otalgia, postnasal drainage. CARDIOVASCULAR: Denies anginal pain, edema or pain of the lower extremities. GASTROINTESTINAL: Denies symptoms of abdominal pain, hematemesis, melena, or hematochezia. SKIN: Denies lesions or rashes. MUSCULOSKELETAL: Denies acute joint pain, redness, or tenderness. CENTRAL NERVOUS SYSTEM: No dizziness, headache, diplopia, syncopal episodes. The remaining systems were reviewed, they were noted all negative. PAST MEDICAL HISTORY: 1. COPD and centrilobular emphysema. 2. Small cell cancer of the lung, which was established with the fiberoptic bronchoscopy that was done on 06/01/2016. 3. History of type 2 diabetes mellitus. 4. History of pancytopenia secondary to chemotherapy. 5. History of allergic rhinitis. 6. Essential hypertension. 7. Hypothyroidism. 8. Hypercholesterolemia. PAST SURGICAL HISTORY: 1. Coronary artery bypass grafting. [place], [place] REPORT OF CONSULTATION NAME: TOBI GARIBAY UNIT #: [id number] ROOM: [facility] DOCTOR: TRINH PENA MD,[facility] BIRTHDATE: [birth year] 2. Knee surgery. 3. Fiberoptic bronchoscopy in 06/01/2016. 4. MediPort insertion done for chemotherapy on 07/06/2016. SOCIAL HISTORY: The patient is . He denies any history of alcohol use. Tobacco use noted since teenager, 3 packs of cigarettes per day until 2009. Denies history of alcohol or illicit drug use. Denies occupation related pulmonary exposure history. FAMILY HISTORY: His father at age of 60 plus years old from unknown cancer. The mother at the age of 60 plus years old, complications related to myocardial infarction. CURRENT ADMINISTERED MEDICATIONS: 1. Noted as use of Argatroban intravenously at 50 mL every 5 hours. 2. Sliding scale insulin coverage. 3. Leukine shots subcutaneously. 4. Lisinopril 10 mg daily. 5. Flomax 0.4 mg at bedtime. 6. Protonix 40 mg daily. 7. Glipizide 5 mg p.o. b.i.d. 8. Levemir insulin. 9. Simvastatin and other p.r.n. medications. DRUG ALLERGY HISTORY: The patient was noted as no known allergies. PHYSICAL EXAMINATION: GENERAL: A 61-year-old white male who has been currently noted awake and alert without any acute distress. VITAL SIGNS: Height of 6 feet, weight of 169 pounds, BMI 22. HEENT: Head: Atraumatic with chemotherapy related alopecia. Eyes: Pallor of the eyes was noted. NECK: Supple. CARDIOVASCULAR: S1, S2 audible. LUNGS: The patient was noted with general reduction in the breath sounds bilaterally. ABDOMEN: Soft, flat, nontender. EXTREMITIES: Show no edema, clubbing or cyanosis. SKIN: Scattered bruising of the skin was noted. MUSCULOSKELETAL: No deformities. LABORATORY DATA: PT/PTT on admission 01/23/2017 was normal. CBC on 03/25/2017, WBC count 2.5, hemoglobin 7.8, hematocrit 23.7 and platelet count 107,000. CMP, 03/25/2017, BUN 39, creatinine 1.37, glucose 85, sodium 132, CO2 19. CBC on 03/26/2017, WBC count 2.2, hemoglobin 7.8, hematocrit 24, platelet count of 80,000. CBC was done on 03/27/2017, WBC count 1.6, hemoglobin 9.2, hematocrit 27.6, platelet count 72,000. CBC on 03/29/2017 shows WBC count 1.5, hemoglobin 8.6, hematocrit 26.2, platelet count 33,000. CBC was done this morning, WBC count 1.2, hemoglobin 8.6, hematocrit 26.2, platelet count 21,000. Ultrasound of the [place], [place] REPORT OF CONSULTATION NAME: TOBI GARIBAY UNIT #: [id number] ROOM: 401 DOCTOR: TRINH PENA MD,[facility] BIRTHDATE: [birth year] venous duplex of bilateral lower extremity was noted without any evidence of deep venous thrombosis. CMP of this morning, BUN 27, creatinine was normal, sodium 135. PTT was noted as 60.4, which is the therapeutic range today and later on noted 59.9, which was still noted therapeutic. Review of the radiology data was performed. The chest x-ray was done on 03/25/2017 noted as left upper lung mass lesion as previously with reduction of the previously noted area of mass in the left upper lung with improvement in aeration since 2016 chest x-ray comparison. CT of the chest was done on 03/28/2017 was personally reviewed, shows mass lesion was noted in the left upper lung currently measured 3.2 x 2.3 cm in the size, which has decreased markedly from size 6.9 x 5.6 cm in the past. Small amount of loculated fluid noted in the left minor rather major fissure. Multiple distal nonsegmental pulmonary arterial emboli was noted in the right pulmonary artery. The left pulmonary artery branches does not show any evidence of pulmonary embolism. IMPRESSION: 1. The patient who has been admitted to the hospital with anemia related to the chemotherapy noted with progressive pancytopenia as well as thrombocytopenia. 2. Interval development of acute pulmonary embolism involving in the segmental branches of the right lobe pulmonary artery noted as an acute finding. 3. History of chronic obstructive pulmonary disease as well. 4. Thrombocytopenia, most likely would be considered as a result of the chemotherapy. Thrombocytopenia has been gradually progressive at this time. There were no signs of an active bleeding noted for recurrent thrombocytopenia. 5. Past history of heavy nicotine abuse until 2009. 6. Leukopenia, which has been noted as a result of chemotherapy as well as anemia. PLAN OF TREATMENT: Agree with use of Argatroban because of the severe thrombocytopenia. Once the patient's platelet count would be noted greater than 50,000, he will be started anticoagulation with Coumadin concomitantly. Monitor platelet count. Usual care, other supportive therapy, plan of management and care. Further treatment changes to be done based on progression of the illness. Use of the oxygen supplementation in case of any hypoxia to maintain saturation 90% greater. The oxygen saturation were noted 99-100% on room air at rest. PT/INR and adjust the dose of the Argatroban accordingly. Consider platelet transfusion if the platelet counts will be noted less than 15,000. Closely monitor for any abnormal bleeding. Continue to monitor daily CBC for assessment of hemoglobin, hematocrit, WBC count and platelet count. Continuation of the growth factor such as Leukine and other for the patient to improve the leukopenia. Blood transfusion could be given to improve the anemia if necessary. Thanks for allowing me to participate in the care of this patient. [place], [place] REPORT OF CONSULTATION NAME: TOBI GARIBAY UNIT #: [id number] ROOM: [facility] DOCTOR: SCOTTIE MORRELL MD BIRTHDATE: [birth year] SCOTTIE TSANG MD CM:CONSTR:REPORT OF CONSULTATION 1404 03/30/17 0633 interface
--- NOTE | ~2017-03-25 | PR ---
[place], [place] PROGRESS NOTE [id number] UNIT #: [id number] ROOM: 401 DOCTOR: JOSELO TERRELL MD BIRTHDATE: [birth year] DOS: 04/02/2017 SUBJECTIVE: The patient is doing better. He is alert, awake and responsive. REVIEW OF SYSTEMS HEENT: No trouble swallowing. No double vision. No loss of vision. No pain. ENT AND RESPIRATORY: No wheeze. No change in voice. No cough. No shortness of breath. No coughing up blood. No epistaxis. CARDIOLOGIC: No chest pain. No dizziness. No irregular heartbeat. No leg edema. No palpitations. No shortness of breath. HEMATOLOGIC AND LYMPH: No past transfusion. No fatigue. No loss of appetite. No easy bruising. GASTROENEROLOGIC: No change in bowel habits. No vomiting blood. No abdominal cramping. No nausea. No vomiting. No diarrhea. No constipation. No blood in stool. MALE REPRODUCTIVE: No testicular pain. No penile discharge. MUSCULOSKELETAL: No back pain. No muscle pain or weakness. No tingling/numbness. UROLOGIC: No pain with urination. No difficulty urinating. No frequent urination. NEUROLOGIC: No burning pain in feet. No trouble with coordination. No loss of consciousness. No headache. No tingling/numbness. No memory loss. PHYSICAL EXAMINATION: GENERAL: Pleasant gentleman, in no apparent distress. VITAL SIGNS: Stable, afebrile. HEENT: Normocephalic, atraumatic NECK AND THYROID: Supple. No JVD, thyromegaly, or lymphadenopathy. HEART: Normal S1, S2. Regular rate and rhythm. LUNGS: Clear to auscultation and percussion. ABDOMEN: Soft. Nontender, nondistended. Bowel sounds present. EXTREMITIES: Normal ROM. No clubbing. No edema. LABORATORY DATA: White count of 1.5, hemoglobin 7.8, hematocrit 23.5, platelet count 28,000. ASSESSMENT: 1. Pancytopenia secondary to chemotherapy. 2. Pulmonary embolism. PLAN. He is on Lovenox 40 mg b.i.d. until his goes above 50,000 and then we will switch it to 80 mg b.i.d., in addition to it he continues to be neutropenic, which he is at his lowest point because of the chemotherapy. He will be going home where we will be adding Cipro and anticoagulants to the regimen and I will follow him as outpatient and change things according to his counts. I have discussed with the patient to stay away from fresh frozen raw vegetables and to put a mask if goes to a crowded area. If he has any fever or chills, he should call me right away. Otherwise close followup. Ample time was given to the patient to ask me questions. [place], [place] PROGRESS NOTE NAME: TOBI GARIBAY UNIT #: [id number] ROOM: [facility] DOCTOR: JOSELO TERRELL MD BIRTHDATE: [birth year] JOSELO TERRELL MD CM:PNTRANS [phone] JOSELO TERRELL MD 04/02/17 1214 interface
--- NOTE | ~2017-03-25 | PR ---
[place], [place] PROGRESS NOTE NAME: TOBI GARIBAY UNIT #: [id number] ROOM: 401 DOCTOR: JOSELO TERRELL MD BIRTHDATE: [birth year] DOS: 03/29/2017 SUBJECTIVE: The patient is doing better. He is awake, alert and responsive. PHYSICAL EXAMINATION: GENERAL: Pleasant gentleman in no apparent distress. VITAL SIGNS: Blood pressure 112/66, respirations 20, pulse 108, temperature 98.2. HEENT: Normocephalic, atraumatic. NECK AND THYROID: Supple. No JVD, thyromegaly, or lymphadenopathy. HEART: Normal S1, S2. Regular rate and rhythm. LUNGS: Clear to auscultation and percussion. ABDOMEN: Soft. Nontender, nondistended. Bowel sounds present. EXTREMITIES: Normal ROM. No clubbing. No edema. LABORATORY DATA: White count of 1.5, hemoglobin 8.6, hematocrit 26.2, platelet count of 33,000. Sodium 133, potassium 4.6, chloride 105. EGFR is more than 60. ASSESSMENT: 1. Pancytopenia secondary to chemotherapy. 2. Extensive small cell lung cancer. 3. Coronary artery disease. PLAN: As he continues the growth factors, I expect the counts to improve, transfusion on p.r.n. basis. If hemoglobin and hematocrit drops further then transfusion, otherwise close followup. Discussed with the patient in detail. JOSELO TERRELL MD CM:PNTRANS 14 [phone] JOSELO TERRELL MD 03/30/173 interface
--- NOTE | ~2017-03-25 | CON ---
[place], [place] REPORT OF CONSULTATION [id number] UNIT #: [id number] ROOM: 401 DOCTOR: JOSELO TERRELL MD BIRTHDATE: [birth year] DOS: 03/26/2017 HISTORY OF PRESENT ILLNESS: The patient is a pleasant 61-year-old [place] gentleman with a history of extensive small cell lung cancer, was noted to have a low hemoglobin and hematocrit and was advised to go to the hospital for transfusion, but he ended up at ER. He came to the Emergency Room at the [facility] and there he was found to have hemoglobin of 7.8, but subsequently he was also noted to have a systolic blood pressure around 80-90 with a heart rate of 100-130, subsequently he was admitted and I am consulted for further evaluation and management. PAST MEDICAL HISTORY: Extensive small cell lung cancer, undergoing chemotherapy; history of coronary disease; depression; diabetes mellitus; hypertension; hypothyroidism; myocardial infarction; history of knee surgery; history of heart bypass surgery; cholecystectomy; and coronary artery disease. SOCIAL HISTORY: Denies any alcohol, former smoker, quit 9 years ago. He used to smoke 3 packets per day for 35 years. Denies any drug abuse. FAMILY HISTORY: Father at age 60 of a malignant neoplasm, myocardial infarction. Mother is at age 60 of myocardial infarction. ALLERGIES: No allergies. MEDICATIONS: Calcium, insulin, lisinopril, megestrol acetate, metformin, pantoprazole sodium, pravastatin, sodium bicarbonate, tamsulosin, and Hycamtin. REVIEW OF SYSTEMS CONSTITUTIONAL: No chills. No fatigue. No fever. No loss of appetite. No night sweats. No weakness. No weight loss. HEENT: No trouble swallowing. No loss of smell. No loss of hearing. No double vision. No pain. No discharge. ENT AND RESPIRATORY: No wheeze. No sore throat. No change in voice. No hearing loss. No nose bleed. No cough. No trouble breathing through nose. No shortness of breath. No coughing up blood. No epistaxis. CARDIOVASCULAR: No chest pain. No dizziness. No irregular heartbeat. No leg edema. No pain in legs while walking. No palpitations. No shortness of breath. DERMATOLOGIC: No acne. No hives. No laceration. No mole. No rash. ENDOCRINE: No cold intolerance. No diabetes. No fatigue. No hot flashes. No polydipsia. No polyuria. No urinating frequently. No weight loss. HEMATOLOGIC AND LYMPH: No fatigue. No easy bruising. GASTROENTEROLOGIC: No change in bowel habits. No indigestion. No frequent bloating. No vomiting blood. No abdominal cramping. No nausea. No heartburn. No vomiting. No abdominal pain. No dysphagia. No diarrhea. No constipation. No blood in stool. MALE REPRODUCTIVE: No testicular pain. No difficulty with erection. No diminished sexual drive. No penile discharge. MUSCULOSKELETAL: No back pain. No muscle pain or weakness. No neck pain. No tingling/numbness. No swelling/bruising. No osteoporosis treatment. [place], [place] REPORT OF CONSULTATION NAME: TOBI GARIBAY UNIT #: [id number] ROOM: [facility] [place] DOCTOR: JOSELO TERRELL MD BIRTHDATE: [birth year] OPTHALMOLOGIC: No double vision. No diminished vision. No loss of vision. UROLOGIC: No dysuria. No frequent nighttime urination. No pain with urination. No difficulty urinating. No blood in urine. No frequent urination. No urinary incontinence. NEUROLOGIC: No loss of sensation in specific body area. No vertigo. No burning pain in feet. No trouble with balance. No trouble with coordination. No loss of consciousness. No loss of feeling/power. No confusion. No headache. No tingling/numbness. PSYCHOLOGIC: No tinnitus. No headaches. No shortness of breath. No weight decrease. No nausea. No vomiting. No abdominal discomfort. No constipation. No diarrhea. No depression. No anxiety. PHYSICAL EXAMINATION: VITAL SIGNS: Stable. Afebrile. GENERAL: General appearance: Pleasant gentleman, in no apparent distress. HEENT: Oral mucosa appears intact. The external ears are normal in appearance. Nares are patent without lesions, exudates, erythema, or inflammation. Tongue is symmetrical. Uvula is midline. NECK AND THYROID: Neck supple without palpable masses. Trachea is midline. No thyromegaly. No carotid bruit or JVD. BREASTS: Normal. Nipples unremarkable. No drainage. No lumps felt on either side. HEART: Normal S1, S2, without significant murmur, rub, or gallop. LUNGS: Clear to auscultation and percussion with good air entry bilaterally. The patient is breathing easily without the use of accessory muscles. Diaphragmatic excursions are intact. ABDOMEN: No costovertebral angle tenderness. Soft. No organomegaly or masses. Nontender. No hernias present. Liver and spleen are not palpable. LYMPHATIC: No adenopathy noted in the cervical, supraclavicular, axillary, or inguinal regions. NEUROLGIC: Nonfocal. Oriented to person, place, and time. MENTAL STATUS: Appropriate for mood and affect. PERIPHERAL PULSES: No varicosities. Femoral and pedal pulses are palpable. EXTREMITIES: Without cyanosis, clubbing, or edema. No gross anomalies. LABORATORY DATA: Show white count of 2.2, hemoglobin 7.8, hematocrit 24.0, and platelet count of 80,000. ASSESSMENT: 1. Pancytopenia secondary to chemotherapy. 2. Extensive small cell lung cancer. 3. Dehydration. We will give him a unit of packed RBC. He is getting a VTE prophylaxis as well as expect the counts to improve. Keep a close watch at this time. Discussed with the patient. Ample time was given to the patient to ask me questions. We will follow. Thanks for consulting and letting me participate in the care of this interesting patient. [place], [place] REPORT OF CONSULTATION NAME: TOBI GARIBAY UNIT #: [id number] ROOM: [facility] [place] DOCTOR: JOSELO TERRELL MD BIRTHDATE: [birth year] JOSELO TERRELL MD CM:CONSTR:REPORT OF CONSULTATION 1409 03/27/17 1428 interface
--- NOTE | ~2017-03-25 | PR ---
[place], [place] PROGRESS NOTE NAME: TOBI GARIBAY [facility] #: [id number] UNIT #: [id number] ROOM: 401 DOCTOR: JOSELO TERRELL MD BIRTHDATE: [birth year] DOS: 04/01/2017 SUBJECTIVE: The patient is doing better. He is alert, awake, oriented and responsive. Denies any petechiae, bruising or bleeding. OBJECTIVE: GENERAL: Pleasant gentleman in no apparent distress. VITAL SIGNS: Stable. He is afebrile. HEENT: Normocephalic, atraumatic. NECK AND THYROID: Supple. No JVD, thyromegaly, or lymphadenopathy. HEART: Normal S1, S2. Regular rate and rhythm. LUNGS: Clear to auscultation and percussion. ABDOMEN: Soft. Nontender, nondistended. Bowel sounds present. EXTREMITIES: Normal ROM. No clubbing. No edema. ASSESSMENT: 1. Pancytopenia secondary to chemotherapy. 2. Pulmonary embolus. 3. Thrombocytopenia. PLAN: I have reviewed ____. The patient was switched to Xarelto, which I am going to stop it. I had reviewed the [facility] information, the patient with thrombocytopenia and cancer ____ bleeding. I am going to hold the Xarelto and put him on Lovenox because of the antidote and half-life. His platelet count is over 25,000. I am going to start half the dose of Lovenox, that is, 0.5 mg/kg b.i.d. and once the platelet count is above 50,000, I am going to change the full dose. We are going to train him ____ Lovenox. I will talk to the physicians. Ample time was given to the patient to ask me questions. JOSELO TERRELL MD CM:PNTRANS [phone] JOSELO TERRELL MD 04/01/17 1327 interface
--- NOTE | ~2017-03-25 | PR ---
[place], [place] PROGRESS NOTE [id number] UNIT #: [id number] ROOM: 401 DOCTOR: JOSELO TERRELL MD BIRTHDATE: [birth year] DOS: 03/27/2017 SUBJECTIVE: The patient is doing much better. He is awake, alert and responsive. He got a unit of blood. PHYSICAL EXAMINATION: GENERAL: Pleasant gentleman, in no apparent distress. VITAL SIGNS: Stable, afebrile. HEENT: Normocephalic, atraumatic. NECK AND THYROID: Supple. No JVD, thyromegaly or lymphadenopathy. HEART: Normal S1, S2. Regular rate and rhythm. LUNGS: Clear to auscultation and percussion. ABDOMEN: Soft. Nontender, nondistended. Bowel sounds present. EXTREMITIES: Normal ROM. No clubbing. No edema. LABORATORY DATA: White count of 1.6, hemoglobin of 9.2, hematocrit of 27.6 and platelet count of 72,000. ASSESSMENT: 1. Pancytopenia. 2. Extensive small cell lung cancer. 3. Hypotension which is getting better. PLAN: We will be starting him on growth factors. He is status post a total of two units of packed RBC. Actually, the counts have improved. Cardiology is on the case. Discussed with the patient. JOSELO TERRELL MD CM:PNTRANS [phone] JOSELO TERRELL MD 03/27/17 1448 interface
--- NOTE | ~2017-03-25 | PR ---
[place], [place] PROGRESS NOTE NAME: TOBI GARIBAY [facility] #: [id number] UNIT #: [id number] ROOM: 401 DOCTOR: SCOTTIE MORRELL MD BIRTHDATE: [birth year] DOS: 04/01/2017 PULMONARY FOLLOWUP SUBJECTIVE: He has been noted comfortable at this time. There were no symptoms of coughing, sputum expectoration, or hemoptysis noted. The patient denies symptoms of gastrointestinal bleeding, rectal bleeding or hematuria. He has been given platelet transfusion yesterday because of the progressive thrombocytopenia. OBJECTIVE: VITAL SIGNS: Shows this morning, normal temperature, respiratory rate 18, heart rate 96, blood pressure 106/68. Pulse oxygen saturation recorded as 98% on nasal cannula. HEENT: Shows no acute change. NECK: Supple. CARDIOVASCULAR: S1, S2 is audible. LUNGS: The patient is noted without any wheezing or crackles at the present time. ABDOMEN: Soft and nontender. LABORATORY DATA: The CBC that was done this morning was noted with WBC count 1.2, hemoglobin 8.3, hematocrit 25.0, platelet count 28,000. PT/INR was noted 1.2, PTT of 34.2. IMPRESSION: 1. The patient has been currently noted with acute pulmonary embolism in the right lower pulmonary arterial branches, currently noted stable. 2. The patient with pancytopenia secondary to chemotherapy and immunosuppression and bone marrow suppression. PLAN OF MANAGEMENT: Monitor the platelet count closely. Traditional anticoagulation could be used for this patient with use of the Coumadin to maintain therapeutic INR and also consider using the Lovenox or heparin. Once the patient's INR is therapeutic, he will be continued on this medication for about 4-6 weeks until the resolution of the thrombocytopenia. Later on, the patient could be switched to the Xarelto for the long-term management of pulmonary embolism. In the meantime, continue other supportive therapy, plan and management and care; and monitoring the leukopenia for this patient's anemia and thrombocytopenia. [place], [place] PROGRESS NOTE [facility]: [id number] UNIT #: [id number] ROOM: 401 DOCTOR: SCOTTIE MORRELL MD BIRTHDATE: [birth year] SCOTTIE TSANG MD CM:PNTRANS [phone] SCOTTIE PENA MD 04/01/17 1042 interface
[~2017-03-25 13:03] MED LIST changes: +CEFEPIME2 GM/100 M IV; +LEUKINE SC; +PANTOPRAZOLE SO40 MG PO; +SODIUM BICARBONATE PO; +TAMSULOSIN HCL0.4 MG PO
[2017-03-25 14:03] LABS: BASO % 0.8 % (0.0-1.0); EOS # 0.1 10*3/uL (0.0-0.4); HEMATOCRIT 23.7 % (42.0-52.0); HEMOGLOBIN 7.8 g/dl (14.0-18.0); LYMPH # 0.4 10*3/uL (1.3-4.4); LYMPH % 17.7 % (27.0-41.0); MEAN CELL VOLUME 88.1 fl (80.0-94.0); MEAN CORPUSCULAR HGB CONC 32.9 g/dl (33.0-37.0); MEAN PLATELET VOLUME 9.8 fl (9.6-12.3); MONO % 0.4 % (3.0-9.0); NEUT # 1.9 10*3/uL (2.3-7.9); NEUT % 75.1 % (47.0-73.0); PLATELET COUNT AUTOMATED 107 10*3/uL (130-400); RED BLOOD COUNT 2.69 10*6/uL (4.50-5.90); RED CELL DISTRI WIDTH 15.8 % (0-14.5); WHITE BLOOD COUNT 2.5 10*3/uL (4.8-10.8)
[2017-03-25 14:12] LABS: ACT PARTIAL THROMBO TIME 24.5 SECONDS (20.8-31.5)
[2017-03-25 14:18] LABS: ALBUMIN 2.9 gm/dl (3.1-4.5); ALKALINE PHOSPHATASE 82 U/L (45-117); BUN 39 mg/dl (7-24); CHLORIDE 104 mmol/L (98-107); CREATININE 1.37 mg/dL (0.70-1.30); POTASSIUM 4.6 mmol/L (3.5-5.1); SGOT/AST 13 IU/L (3-35); SGPT/ALT 25 U/L (12-78); SODIUM 132 mmol/L (136-145)
[2017-03-25] MEDS ORDERED: LANTUS SOL100 UNIT/1 SC (17:14)
[2017-03-25] MEDS ORDERED: NOVOLIN 70100 UNIT/1 SC (17:16)
[2017-03-25] MEDS ORDERED: SODIUM BICARBO650 MG PO (17:17)
[2017-03-25 22:19] LABS: HEMATOCRIT 25.2 % (42.0-52.0); HEMOGLOBIN 8.2 g/dl (14.0-18.0)
[2017-03-26] VITALS (11 sets, daily range): BP systolic 102–128; BP diastolic 62–84
[2017-03-26 05:44] LABS: ALBUMIN 2.6 gm/dl (3.1-4.5); BUN 43 mg/dl (7-24); CHLORIDE 105 mmol/L (98-107); MAGNESIUM 1.2 mg/dL (1.5-2.1); POTASSIUM 4.8 mmol/L (3.5-5.1); SODIUM 133 mmol/L (136-145)
[2017-03-26 05:51] LABS: ALKALINE PHOSPHATASE 74 U/L (45-117); CHOLESTEROL 113 mg/dL (<200); CREATININE 1.06 mg/dL (0.70-1.30); HDL CHOLESTEROL 36 mg/dl (40-60); LDL CHOLESTEROL 60 mg/dL (9-159); PHOSPHOROUS 3.7 mg/dL (2.5-4.9); SGOT/AST 10 IU/L (3-35); SGPT/ALT 22 U/L (12-78); TOTAL PROTEIN 6.4 gm/dL (6.4-8.2); TRIGLYCERIDES 85 mg/dl (<150); VLDL CHOLESTEROL 17 mg/dL (6-40)
[2017-03-26 05:59] LABS: BASO % 0.5 % (0.0-1.0); EOS # 0.1 10*3/uL (0.0-0.4); EOS % 4.6 % (1.0-4.0); HEMOGLOBIN 7.8 g/dl (14.0-18.0); LYMPH # 0.6 10*3/uL (1.3-4.4); LYMPH % 26.7 % (27.0-41.0); MEAN CORPUSCULAR HGB CONC 32.5 g/dl (33.0-37.0); MEAN PLATELET VOLUME 10.7 fl (9.6-12.3); MONO % 1.4 % (3.0-9.0); NEUT # 1.4 10*3/uL (2.3-7.9); NEUT % 65.9 % (47.0-73.0); PLATELET COUNT AUTOMATED 80 10*3/uL (130-400); RED BLOOD COUNT 2.79 10*6/uL (4.50-5.90); RED CELL DISTRI WIDTH 16.4 % (0-14.5); WHITE BLOOD COUNT 2.2 10*3/uL (4.8-10.8)
[2017-03-26 16:49] LABS: VITAMIN D, 25-HYDROXY 25.5 ng/mL (30-100)
[2017-03-27] VITALS: BP 127/73
[2017-03-27 04:49] LABS: HEMATOCRIT 27.6 % (42.0-52.0); HEMOGLOBIN 9.2 g/dl (14.0-18.0); MEAN CELL VOLUME 85.2 fl (80.0-94.0); MEAN CORPUSCULAR HGB 28.4 pg (27.0-31.0); MEAN CORPUSCULAR HGB CONC 33.3 g/dl (33.0-37.0); MEAN PLATELET VOLUME 10.7 fl (9.6-12.3); PLATELET COUNT AUTOMATED 72 10*3/uL (130-400); RED BLOOD COUNT 3.24 10*6/uL (4.50-5.90); RED CELL DISTRI WIDTH 16.6 % (0-14.5)
[2017-03-27 05:01] LABS: WHITE BLOOD COUNT 1.6 10*3/uL (4.8-10.8)
[2017-03-27 05:04] LABS: BUN 34 mg/dl (7-24); CHLORIDE 104 mmol/L (98-107); CREATININE 1.08 mg/dL (0.70-1.30); MAGNESIUM 1.6 mg/dL (1.5-2.1); POTASSIUM 5.4 mmol/L (3.5-5.1); SODIUM 133 mmol/L (136-145)
[2017-03-27 05:42] LABS: PLATELET SUFFICIENCY LOW (NORMAL); TOTAL CELLS COUNTED 100 #CELLS
[2017-03-27 08:00] VITALS: BP 110/74
[2017-03-27 12:00] VITALS: BP 117/74
[2017-03-27 16:00] VITALS: BP 103/64
[2017-03-27 20:00] VITALS: BP 95/53
[2017-03-28] VITALS: BP 103/61
[2017-03-28 05:51] LABS: BUN 38 mg/dl (7-24); CHLORIDE 102 mmol/L (98-107); CREATININE 1.25 mg/dL (0.70-1.30); POTASSIUM 4.8 mmol/L (3.5-5.1); SODIUM 132 mmol/L (136-145)
[2017-03-28 06:13] LABS: HEMATOCRIT 26.6 % (42.0-52.0); HEMOGLOBIN 8.9 g/dl (14.0-18.0); MEAN CELL VOLUME 86.6 fl (80.0-94.0); MEAN CORPUSCULAR HGB CONC 33.5 g/dl (33.0-37.0); MEAN PLATELET VOLUME 10.8 fl (9.6-12.3); RED BLOOD COUNT 3.07 10*6/uL (4.50-5.90); RED CELL DISTRI WIDTH 16.6 % (0-14.5)
[2017-03-28 06:35] LABS: PLATELET COUNT AUTOMATED 41 10*3/uL (130-400)
[2017-03-28 07:01] LABS: BASOPHILS 1 % (0-1); BURR CELLS FEW; OVALOCYTES FEW; ROULEAUX SLIGHT; TOTAL CELLS COUNTED 100 #CELLS
[2017-03-28 07:02] LABS: PLATELET SUFFICIENCY LOW (NORMAL); POLYCHROMASIA SLIGHT
[2017-03-28 07:03] LABS: WHITE BLOOD COUNT 1.5 10*3/uL (4.8-10.8)
[2017-03-28 08:00] VITALS: BP 108/68
[2017-03-28 12:00] VITALS: BP 102/60
[2017-03-28 16:00] VITALS: BP 93/52
[2017-03-28 20:00] VITALS: BP 120/67
[2017-03-29] VITALS: BP 105/62
[2017-03-29 05:57] LABS: HEMATOCRIT 26.2 % (42.0-52.0); HEMOGLOBIN 8.6 g/dl (14.0-18.0); MEAN CELL VOLUME 85.1 fl (80.0-94.0); MEAN CORPUSCULAR HGB 27.9 pg (27.0-31.0); MEAN CORPUSCULAR HGB CONC 32.8 g/dl (33.0-37.0); MEAN PLATELET VOLUME 11.3 fl (9.6-12.3); PLATELET COUNT AUTOMATED 33 10*3/uL (130-400); RED BLOOD COUNT 3.08 10*6/uL (4.50-5.90)
[2017-03-29 06:00] LABS: BUN 32 mg/dl (7-24); CHLORIDE 105 mmol/L (98-107); CREATININE 1.04 mg/dL (0.70-1.30); POTASSIUM 4.6 mmol/L (3.5-5.1); SODIUM 133 mmol/L (136-145)
[2017-03-29 07:02] LABS: TOTAL CELLS COUNTED 50 #CELLS
[2017-03-29 07:03] LABS: BURR CELLS FEW; PLATELET SUFFICIENCY LOW (NORMAL); POLYCHROMASIA SLIGHT; TOXIC GRANULATION SLIGHT
[2017-03-29 07:06] LABS: WHITE BLOOD COUNT 1.5 10*3/uL (4.8-10.8)
[2017-03-29 08:00] VITALS: BP 112/66
[2017-03-29 12:00] VITALS: BP 97/69
[2017-03-29 16:00] VITALS: BP 123/71
[2017-03-29 20:00] VITALS: BP 116/70
[2017-03-30] VITALS: BP 121/67
[2017-03-30 07:10] LABS: HEMATOCRIT 26.2 % (42.0-52.0); HEMOGLOBIN 8.6 g/dl (14.0-18.0); MEAN CELL VOLUME 85.6 fl (80.0-94.0); MEAN CORPUSCULAR HGB 28.1 pg (27.0-31.0); MEAN CORPUSCULAR HGB CONC 32.8 g/dl (33.0-37.0); MEAN PLATELET VOLUME 11.1 fl (9.6-12.3); RED BLOOD COUNT 3.06 10*6/uL (4.50-5.90); RED CELL DISTRI WIDTH 15.7 % (0-14.5)
[2017-03-30 07:31] LABS: CHLORIDE 104 mmol/L (98-107); POTASSIUM 4.8 mmol/L (3.5-5.1); SODIUM 135 mmol/L (136-145)
[2017-03-30 07:35] LABS: ALBUMIN 2.8 gm/dl (3.1-4.5); ALKALINE PHOSPHATASE 89 U/L (45-117); BUN 27 mg/dl (7-24); CREATININE 0.97 mg/dL (0.70-1.30); SGOT/AST 5 IU/L (3-35); SGPT/ALT 34 U/L (12-78); TOTAL PROTEIN 6.7 gm/dL (6.4-8.2)
[2017-03-30 07:44] LABS: BURR CELLS FEW; OVALOCYTES FEW; PLATELET SUFFICIENCY LOW (NORMAL); ROULEAUX SLIGHT; TOTAL CELLS COUNTED 100 #CELLS
[2017-03-30 07:46] LABS: PLATELET COUNT AUTOMATED 21 10*3/uL (130-400); WHITE BLOOD COUNT 1.2 10*3/uL (4.8-10.8)
[2017-03-30 08:00] VITALS: BP 114/72
[2017-03-30 12:00] VITALS: BP 114/68
[2017-03-30 16:00] VITALS: BP 117/58
[2017-03-30 20:00] VITALS: BP 129/68
[2017-03-31] VITALS (8 sets, daily range): BP systolic 102–129; BP diastolic 59–77
[2017-03-31 06:16] LABS: HEMATOCRIT 25.2 % (42.0-52.0); HEMOGLOBIN 8.3 g/dl (14.0-18.0); MEAN CELL VOLUME 85.4 fl (80.0-94.0); MEAN CORPUSCULAR HGB 28.1 pg (27.0-31.0); MEAN CORPUSCULAR HGB CONC 32.9 g/dl (33.0-37.0); RED BLOOD COUNT 2.95 10*6/uL (4.50-5.90); RED CELL DISTRI WIDTH 15.7 % (0-14.5)
[2017-03-31 06:44] LABS: TOTAL CELLS COUNTED 50 #CELLS
[2017-03-31 06:45] LABS: ACANTHOCYTES FEW; PLATELET SUFFICIENCY LOW (NORMAL); POLYCHROMASIA SLIGHT; TOXIC GRANULATION SLIGHT
[2017-03-31 06:47] LABS: PLATELET COUNT AUTOMATED 18 10*3/uL (130-400)
[2017-04-01] VITALS: BP 113/68
[2017-04-01 06:06] LABS: HEMOGLOBIN 8.3 g/dl (14.0-18.0); MEAN CELL VOLUME 84.5 fl (80.0-94.0); MEAN CORPUSCULAR HGB CONC 33.2 g/dl (33.0-37.0); MEAN PLATELET VOLUME 10.8 fl (9.6-12.3); RED BLOOD COUNT 2.96 10*6/uL (4.50-5.90); RED CELL DISTRI WIDTH 15.3 % (0-14.5)
[2017-04-01 06:15] LABS: ACT PARTIAL THROMBO TIME 34.4 SECONDS (20.8-31.5); INTERNATIONAL NORM RATIO 1.2 (2.0-3.5)
[2017-04-01 06:32] LABS: PLATELET COUNT AUTOMATED 28 10*3/uL (130-400); WHITE BLOOD COUNT 1.2 10*3/uL (4.8-10.8)
[2017-04-01 06:37] LABS: BASOPHILS 1 % (0-1); PLATELET SUFFICIENCY LOW (NORMAL); ROULEAUX MODERATE; TOTAL CELLS COUNTED 100 #CELLS
[2017-04-01 08:00] VITALS: BP 106/68
[2017-04-01 12:00] VITALS: BP 110/65
[2017-04-01 16:00] VITALS: BP 104/57
[2017-04-01 20:00] VITALS: BP 116/60
[2017-04-02] VITALS (9 sets, daily range): BP systolic 100–139; BP diastolic 53–75
[2017-04-02 07:01] LABS: HEMATOCRIT 23.5 % (42.0-52.0); HEMOGLOBIN 7.8 g/dl (14.0-18.0); MEAN CELL VOLUME 85.8 fl (80.0-94.0); MEAN CORPUSCULAR HGB 28.5 pg (27.0-31.0); MEAN CORPUSCULAR HGB CONC 33.2 g/dl (33.0-37.0); MEAN PLATELET VOLUME 11.8 fl (9.6-12.3); RED BLOOD COUNT 2.74 10*6/uL (4.50-5.90); RED CELL DISTRI WIDTH 15.6 % (0-14.5)
[2017-04-02 07:23] LABS: BURR CELLS FEW; PLATELET SUFFICIENCY LOW (NORMAL); ROULEAUX MODERATE; SCHISTOCYTES FEW; TOTAL CELLS COUNTED 100 #CELLS
[2017-04-02 07:25] LABS: PLATELET COUNT AUTOMATED 28 10*3/uL (130-400); WHITE BLOOD COUNT 1.5 10*3/uL (4.8-10.8)
[2017-04-02] MEDS ORDERED: ZOVIRAX400 MG PO (08:37)
[2017-04-02] MEDS ORDERED: Lovenox40 MG/0.4 PO (11:54)
[2017-04-02] MEDS ORDERED: CIPRO500 MG PO (11:54)
== END 2017-04-02 14:39 | disposition home health service (06) | DRG 180 ==
LOC: ED 13:03 → EDHOLD 15:25 → 4E 15:25
PROVIDERS: Emergency Medicine; Internal Medicine Hematology & Oncology; Internal Medicine Nephrology; Student in an Organized Health Care Education/Training Program; ADMIT Internal Medicine
PROC: 30243N1 Transfusion of Nonautologous Red Blood Cells into Central Vein, Percutaneous Approach (ICD-10-PCS; 2017-03-25)
PROC: 30243R1 Transfusion of Nonautologous Platelets into Central Vein, Percutaneous Approach (ICD-10-PCS; principal; 2017-03-31)
DX: C34.92 Malignant neoplasm of unspecified part of left bronchus or lung (principal); N17.0 Acute kidney failure with tubular necrosis; I26.99 Other pulmonary embolism without acute cor pulmonale; D61.810 Antineoplastic chemotherapy induced pancytopenia; C78.7 Secondary malignant neoplasm of liver and intrahepatic bile duct; I11.0 Hypertensive heart disease with heart failure; E83.42 Hypomagnesemia; I50.42 Chronic combined systolic (congestive) and diastolic (congestive) heart failure; E44.0 Moderate protein-calorie malnutrition; E87.1 Hypo-osmolality and hyponatremia; I25.810 Atherosclerosis of coronary artery bypass graft(s) without angina pectoris; I95.89 Other hypotension; T45.1X5A Adverse effect of antineoplastic and immunosuppressive drugs, initial encounter; D72.810 Lymphocytopenia; D75.82 Heparin induced thrombocytopenia (HIT); E11.8 Type 2 diabetes mellitus with unspecified complications; F32.9 Major depressive disorder, single episode, unspecified; E03.9 Hypothyroidism, unspecified; E87.5 Hyperkalemia; D64.81 Anemia due to antineoplastic chemotherapy; J43.2 Centrilobular emphysema; E78.00 Pure hypercholesterolemia, unspecified; E86.0 Dehydration; I25.2 Old myocardial infarction; Z95.5 Presence of coronary angioplasty implant and graft; Z87.891 Personal history of nicotine dependence; Z80.9 Family history of malignant neoplasm, unspecified; Z82.49 Family history of ischemic heart disease and other diseases of the circulatory system; Z79.4 Long term (current) use of insulin; Z79.84 Long term (current) use of oral hypoglycemic drugs; Z79.899 Other long term (current) drug therapy; Y92.89 Other specified places as the place of occurrence of the external cause; Z68.22 Body mass index [BMI] 22.0-22.9, adult; Z90.49 Acquired absence of other specified parts of digestive tract

== ENCOUNTER → 2017-05-02 | Day surgery (SDC) | payer OTHER ==
[~2017-05-02] VITALS: Ht 182.8 cm; Wt 91.6 kg
[~2017-05-02] MED LIST changes: +CIPRO500 MG PO; +LANTUS SOL100 UNIT/1 SC; +Lovenox40 MG/0.4 PO; +NOVOLIN 70100 UNIT/1 SC; +SODIUM BICARBO650 MG PO; +ZOVIRAX400 MG PO
--- NOTE | ~2017-05-02 | PROC NOTE ---
[place], [place] PROCEDURE NOTE [id number] UNIT #: [id number] ROOM: DOCTOR: BLOSSOM HOWARD MD BIRTHDATE: [birth year] DOS: 05/02/2017 PREOPERATIVE DIAGNOSIS: Exposed right chest MediPort. POSTOPERATIVE DIAGNOSIS: Exposed right chest MediPort. PROCEDURE: Removal of right chest MediPort. SURGEON: Blossom Howard M.D. RUBBER TURNER: MS3. ANESTHESIA: Local (1% plain lidocaine). INDICATIONS: This is a 61-year-old gentleman who has got a history of lung cancer and undergoing chemotherapy for the same who is here for removal of the right MediPort because it is exposed to the skin. The procedure and its complications were explained to the patient in detail. Complications that were discussed included but were not limited to bleeding, infection and prolonged pain. He agreed to proceed. DESCRIPTION OF PROCEDURE: After identifying the patient, the patient was brought to the operating suite and laid in the supine position. After time-out procedure was called, the parts were painted and draped in the usual sterile fashion. Approximately 5 mL of 1% plain lidocaine was injected around the area of the exposed MediPort. Small skin incision was made laterally and the port was removed in its entirety and sent for histopathological diagnosis. Hemostasis was achieved with the help of electrocautery. Thereafter, the skin edges were approximated loosely with the help of 3-0 nylon in an interrupted fashion and dressing was placed. The patient tolerated the procedure well. There were no complications. Dr. Blossom Howard, the attending surgeon, was present throughout the operating case. Blossom Howard MD CM:PROCNOTE:PROCEDURE NOTE [phone] BLOSSOM HOWARD MD
[2017-05-02 11:50] VITALS: BP 97/56
[2017-05-02 12:20] VITALS: BP 117/43
[2017-05-02 12:25] VITALS: BP 121/78
[2017-05-02 12:30] VITALS: BP 123/79
[2017-05-02 12:35] VITALS: BP 128/81
== END | disposition home or self-care (01) ==
LOC: SDC 04-30 15:30
DX: C34.90 Malignant neoplasm of unspecified part of unspecified bronchus or lung (principal); I10 Essential (primary) hypertension; I25.10 Atherosclerotic heart disease of native coronary artery without angina pectoris; E11.9 Type 2 diabetes mellitus without complications; E03.9 Hypothyroidism, unspecified; E78.00 Pure hypercholesterolemia, unspecified; Z86.14 Personal history of Methicillin resistant Staphylococcus aureus infection; Z95.1 Presence of aortocoronary bypass graft; Z82.49 Family history of ischemic heart disease and other diseases of the circulatory system; Z83.3 Family history of diabetes mellitus

== ENCOUNTER → 2017-05-10 | Day surgery (SDC) | payer OTHER ==
[2017-05-09 10:50] LABS: HEMATOCRIT 25.5 % (42.0-52.0); HEMOGLOBIN 8.6 g/dl (14.0-18.0); MEAN CELL VOLUME 86.7 fl (80.0-94.0); MEAN CORPUSCULAR HGB 29.3 pg (27.0-31.0); MEAN CORPUSCULAR HGB CONC 33.7 g/dl (33.0-37.0); MEAN PLATELET VOLUME 11.1 fl (9.6-12.3); PLATELET COUNT AUTOMATED 39 10*3/uL (130-400); RED BLOOD COUNT 2.94 10*6/uL (4.50-5.90); RED CELL DISTRI WIDTH 16.1 % (0-14.5)
[2017-05-09 11:06] LABS: BUN 19 mg/dl (7-24); CHLORIDE 101 mmol/L (98-107); CREATININE 1.15 mg/dL (0.70-1.30); POTASSIUM 4.4 mmol/L (3.5-5.1); SODIUM 134 mmol/L (136-145)
[2017-05-09 11:11] LABS: BASOPHILS 1 % (0-1); BURR CELLS FEW; PLATELET SUFFICIENCY LOW (NORMAL); ROULEAUX MODERATE; TOTAL CELLS COUNTED 100 #CELLS
[2017-05-09 11:14] LABS: WHITE BLOOD COUNT 1.4 10*3/uL (4.8-10.8)
[~2017-05-10] VITALS: Ht 182.8 cm; Wt 90.7 kg
[~2017-05-10] MED LIST changes: +PLAVIX75 M1 PO
--- NOTE | ~2017-05-10 | O ---
[place], [place] OPERATIVE NOTE NAME: TOBI GARIBAY UNIT #: [id number] ROOM: DOCTOR: BLOSSOM HOWARD MD BIRTHDATE: [birth year] DOS: 05/10/2017 PREOPERATIVE DIAGNOSIS: Left lung cancer. POSTOPERATIVE DIAGNOSIS: Left lung cancer. PROCEDURE: Left internal general MediPort placement. SURGEON: Blossom Howard M.D. SAILING OFFICER: EMILEE. ANESTHESIA: MAC plus local. INDICATIONS: This is a 61-year-old gentleman who has a history of lung cancer, who is here for left-sided internal jugular MediPort placement. Patient had a right-sided MediPort that needed to come out because of port erosions. DESCRIPTION OF PROCEDURE: After identifying the patient, the patient was brought to the operating suite and laid in the supine position. A timeout procedure was called and the parts were then painted and draped in the usual sterile fashion, sedation was administered by the anesthesia team. Left internal jugular access was obtained with the help of an ultrasound and a guidewire was passed, which was confirmed on fluoroscopy. Thereafter, a pocket was created by making an incision on the anterior chest wall and after injected for local anesthesia, the catheter was then passed over an introducer from this incision site into the neck and then placed into the internal jugular vein via the sheath that was passed over the wire. After adequate consultation was obtained, the catheter was cut and the MediPort was attached to the end of the catheter. It was confirmed to be in good placement after it was injected with epinephrine and had a return of blow flow. It was then fixed to the anterior chest wall with the help of Prolene and the skin edges were approximated with the help of 3-0 Vicryl and 4-0 Vicryl respectively. Patient tolerated the procedure well and was brought back to the recovery room in stable fashion. There were no complications. Dr. Blossom Howard, the attending surgeon, was present throughout the operating case. [place], [place] OPERATIVE NOTE NAME: TOBI GARIBAY UNIT #: [id number] ROOM: DOCTOR: BLOSSOM HOWARD MD BIRTHDATE: [birth year] Blossom Howard MD CM:OPRECORD:OPERATIVE NOTE [phone] BLOSSOM HOWARD MD 05/10/17 1042 interface
[2017-05-10 07:00] VITALS: BP 122/73
[2017-05-10 08:47] VITALS: BP 109/71
[2017-05-10 08:58] VITALS: BP 132/79
[2017-05-10 09:18] VITALS: BP 145/87
== END | disposition home or self-care (01) ==
LOC: SDC 05-07 08:00
PROVIDERS: Surgery
DX: C34.92 Malignant neoplasm of unspecified part of left bronchus or lung (principal); Z87.891 Personal history of nicotine dependence; I10 Essential (primary) hypertension; I25.2 Old myocardial infarction; E11.9 Type 2 diabetes mellitus without complications; E03.9 Hypothyroidism, unspecified; E78.00 Pure hypercholesterolemia, unspecified; Z86.14 Personal history of Methicillin resistant Staphylococcus aureus infection; Z95.1 Presence of aortocoronary bypass graft; Z95.5 Presence of coronary angioplasty implant and graft; Z82.49 Family history of ischemic heart disease and other diseases of the circulatory system; Z83.3 Family history of diabetes mellitus

== ENCOUNTER 2017-06-18 09:44 | Inpatient (IN) | payer OTHER ==
[~2017-06-18] VITALS: Ht 182.9 cm; Wt 95.7 kg
[2017-06-18] VITALS (10 sets, daily range): BP systolic 111–124; BP diastolic 67–86
--- NOTE | ~2017-06-18 | PR ---
[place], [place] PROGRESS NOTE NAME: TOBI GARIBAY UNIT #: [id number] ROOM: 403 DOCTOR: ANGELIKA POWELLNOVEMBER BIRTHDATE: [birth year] DOS: SUBJECTIVE: The patient is being followed for an infected MediPort, status post removal on June 21. He had positive blood cultures on the and for Staph epidermidis all from his MediPort. Blood cultures from the night are negative, but tip culture was not done with removal. He is tolerating the antibiotic. He has been receiving vancomycin. Denies any nausea, vomiting or diarrhea. No rash or itch. Little cough. No shortness of breath. Denies any pain. LABORATORY DATA: Labs show WBC is 15.0 from the . He has had no labs today, other than vanco trough which is 19.7. CURRENT MEDICATIONS: Include vancomycin, Glucotrol, Glucophage, Protonix, Zocor, Zestril, Flomax, sodium bicarb, Megace, Levemir, Lovenox, Zofran, milk of mag and Tylenol. IMAGING: Chest x-ray from yesterday shows CHF and pulmonary edema. PHYSICAL EXAMINATION: VITAL SIGNS: Temperature 98.3, pulse 108, respirations 20, BP 110/72: GENERAL: Alert and oriented, 61-year-old male, in no acute distress. HEAD, EYES. EARS, NOSE AND THROAT: Normocephalic. No thrush. LUNGS: Clear to auscultation bilaterally. Respirations even and unlabored. HEART: Regular rhythm. No murmur appreciated. Left chest incision is dressed. ABDOMEN: Soft, nontender. EXTREMITIES: +3 edema of bilateral lower extremities. ASSESSMENT: MediPort infection with Staphylococcus epidermidis, status post removal on the . PLAN: Continue IV antibiotics for 2 weeks from the date of removal. It was in place for chemotherapy for his lung cancer. NOVEMBER SHERRY CARNEY [place], [place] PROGRESS NOTE NAME: TOBI GARIBAY UNIT #: [id number] ROOM: 403 DOCTOR: ANGELIKA POWELLNOVEMBER BIRTHDATE: [birth year] MELISA SALAMANCA MD CM:GRABIEL [phone] MARGARET ANGELIKA [facility] 06/25/17 1709 interface
--- NOTE | ~2017-06-18 | PR ---
[place], [place] PROGRESS NOTE NAME: TOBI GARIBAY UNIT #: [id number] ROOM: 403 DOCTOR: JOSELO TERRELL MD BIRTHDATE: [birth year] DOS: 06/25/2017 SUBJECTIVE: The patient is doing much better. He is awake, alert and oriented. He is getting his IV antibiotics. PHYSICAL EXAMINATION: GENERAL: Pleasant gentleman in no apparent distress. VITAL SIGNS: Stable. He is afebrile. HEENT: Normocephalic, atraumatic NECK AND THYROID: Supple. No JVD, thyromegaly, or lymphadenopathy. HEART: Normal S1, S2. Regular rate and rhythm. LUNGS: Clear to auscultation and percussion. ABDOMEN: Soft. Nontender, nondistended. Bowel sounds present. EXTREMITIES: Normal ROM. No clubbing. No edema. LABORATORY DATA: White count of 15.0, hemoglobin 8.2, hematocrit 25.7, platelet count of 239, BUN 17. EGFR more than 60. Sodium 131, potassium 4.7, chloride 99, bicarbonate 24, calcium 8.3. ASSESSMENT: 1. Heart failure. 2. Extensive small cell lung cancer, undergoing chemotherapy. 3. Leukocytosis, reactive. 4. Sepsis with positive blood cultures. PLAN: The patient will continue present antibiotics though the repeat blood cultures were negative. His MediPort has been removed and he has PICC line. We will reevaluate him as outpatient and depending upon the further intervention. ID has given okay to start chemotherapy next week. Blood cultures grew Staph epi. Ample time was given to the patient to ask me questions. JOSELO TERRELL MD CM:PNTRANS 1408 6 JOSELO TERRELL MD 06/26/175 interface
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
--- NOTE | ~2017-06-18 | PROC NOTE ---
[place], [place] PROCEDURE NOTE [id number] UNIT #: [id number] ROOM: 403 DOCTOR: BLOSSOM HOWARD MD BIRTHDATE: [birth year] DOS: 06/21/2017 PREOPERATIVE DIAGNOSIS: Positive blood cultures. POSTOPERATIVE DIAGNOSIS: Positive blood cultures. PROCEDURE: Removal of left chest MediPort. SURGEON: Blossom Howard M.D. LEATHER STRIPPING MACHINE OPERATOR: EMILEE. ANESTHESIA: Local. INDICATIONS: This is a 61-year-old gentleman who is undergoing chemotherapy for advanced lung cancer, who was admitted with positive blood cultures and sepsis. I was consulted to remove his left anterior chest wall MediPort. The procedure and its complications were explained to the patient in detail preoperatively. Complications that were discussed included, but were not limited to bleeding, infection and damage to underlying vital structures. He agreed to proceed. DESCRIPTION OF PROCEDURE: After identifying the patient, the patient was brought to the operating suite and laid in the supine position. After the parts were painted and draped in the usual sterile fashion, timeout procedure was called and local anesthesia was infiltrated in the line of the previously placed scar. The incision was made and the MediPort site was visualized. The stitches were cut with the help of scissors and the port was then removed and sent for histopathological diagnosis. Pressure was placed in order to control hemostasis, and the skin edges were cauterized for hemostasis as well. After hemostasis was confirmed, the subcutaneous tissue was irrigated and approximated with the help of 3-0 Vicryl in a running fashion and the skin edges were approximated with the help of 4-0 Vicryl in a subcuticular running fashion. Dressings were placed. The patient tolerated the procedure well and was brought back to the recovery room in stable fashion. There were no complications. Dr. Blossom Howard, the attending surgeon, was present throughout the operating case. Blossom Howard MD CM:PROCNOTE:PROCEDURE NOTE [id number] BLOSSOM HOWARD MD
--- NOTE | ~2017-06-18 | PR ---
[place], [place] PROGRESS NOTE NAME: TOBI GARIBAY UNIT #: [id number] ROOM: 403 DOCTOR: ANGELIKA POWELLNOVEMBER BIRTHDATE: [birth year] DOS: 06/24/2017 SUBJECTIVE: The patient is being followed for an infected MediPort with coagulase negative staph. He is currently on IV vancomycin. He is tolerating it without issues. No fevers, chills, nausea, vomiting or diarrhea. No rash or itch. No cough or shortness of breath. Repeat blood cultures from the night remain sterile. Prior positive blood cultures were from the MediPort on June 19 and June 18 for staph epidermidis. No tip culture was done. The MediPort was removed on the . He had a PICC line placed earlier today and is readying for discharge with home health. CURRENT MEDICATIONS: Include vancomycin, Glucotrol, Glucophage, Protonix, Zocor, Zestril, Flomax, sodium bicarb, Megace, Levemir, Lovenox, Restoril, Zofran, [place] and Tylenol. OBJECTIVE: VITAL SIGNS: Show temperature 97.9, pulse 112, respirations 20, BP 120/75. GENERAL: A 61-year-old male, in no acute distress. HEAD, EYES, EARS, NOSE AND THROAT: Normocephalic. No thrush. LUNGS: Clear to auscultation bilaterally. Respirations even and unlabored. HEART: Regular rhythm. No murmur appreciated. ABDOMEN: Soft, nontender. EXTREMITIES: +3 edema, bilateral lower extremities. SKIN: Warm, dry, free of rashes. Right arm PICC in place. Dressing dry and intact. ASSESSMENT: Infected MediPort with Staphylococcus epidermidis, status post removal. PLAN: Continue the vancomycin for approximately another 11 days. I discussed with pharmacy here. We are going to discharge him on 2 grams IV q. 24 hours and have labs per ID protocol, which I did discuss with the social service assistant, also discussed the case with Dr. Naina Hirsch. NOVEMBER SHERRY CARNEY [place], [place] PROGRESS NOTE NAME: TOBI GARIBAY UNIT #: [id number] ROOM: 403 DOCTOR: ANGELIKA POWELL,NOVEMBER BIRTHDATE: [birth year] MELISA SALAMANCA MD CM:PNTRANS [id number] NOVEMBER ANGELIKA POWELL 06/24/17 1541 interface
--- NOTE | ~2017-06-18 | PR ---
[place], [place] PROGRESS NOTE NAME: TOBI GARIBAY UNIT #: [id number] ROOM: 403 DOCTOR: JOSELO TERRELL MD BIRTHDATE: [birth year] DOS: 06/18/2017 The patient was seen because of extensive lung cancer, severe anemia. We will review records, full consult to follow. JOSELO TERRELL MD CM:PNTRANS 1344 [id number] JOSELO TERRELL MD 06/18/17 2329 interface
--- NOTE | ~2017-06-18 | PR ---
[place], [place] PROGRESS NOTE NAME: TOBI GARIBAY UNIT #: [id number] ROOM: 403 DOCTOR: CHEIKH MALONEY,MELISA [place] BIRTHDATE: [birth year] DOS: 06/25/2017 After reviewing the chart and plans, I agree with the above plans as outlined. We will follow the patient up clinically and adjust accordingly. MELISA SALAMANCA MD CM:PNTRANS [phone] 11 MELISA SALAMANCA MD 06/26/17 0414 interface
--- NOTE | ~2017-06-18 | PR ---
[place], [place] PROGRESS NOTE [id number] UNIT #: [id number] ROOM: 403 DOCTOR: JOSELO TERRELL MD BIRTHDATE: [birth year] DOS: 06/23/2017 SUBJECTIVE: The patent is doing much better. He is awake, alert and oriented. His MediPort was removed because of infection. REVIEW OF SYSTEMS HEENT: No trouble swallowing. No double vision. No loss of vision. No pain. ENT AND RESPIRATORY: No wheeze. No change in voice. No cough. No shortness of breath. No coughing up blood. No epistaxis. CARDIOLOGIC: No chest pain. No dizziness. No irregular heartbeat. No leg edema. No palpitations. No shortness of breath. HEMATOLOGIC AND LYMPH: No past transfusion. No fatigue. No loss of appetite. No easy bruising. GASTROENEROLOGIC: No change in bowel habits. No vomiting blood. No abdominal cramping. No nausea. No vomiting. No diarrhea. No constipation. No blood in stool. MALE REPRODUCTIVE: No testicular pain. No penile discharge. MUSCULOSKELETAL: No back pain. No muscle pain or weakness. No tingling/numbness. UROLOGIC: No pain with urination. No difficulty urinating. No frequent urination. NEUROLOGIC: No burning pain in feet. No trouble with coordination. No loss of consciousness. No headache. No tingling/numbness. No memory loss. PHYSICAL EXAMINATION: GENERAL: Pleasant gentleman in no apparent distress. VITAL SIGNS: Blood pressure 122/72, respirations 18, pulse 95, temperature 97.5. HEENT: Normocephalic, atraumatic NECK AND THYROID: Supple. No JVD, thyromegaly, or lymphadenopathy. HEART: Normal S1, S2. Regular rate and rhythm. LUNGS: Clear to auscultation and percussion. ABDOMEN: Soft. Nontender, nondistended. Bowel sounds present. EXTREMITIES: Normal ROM. No clubbing. No edema. LABORATORY DATA: White count of 15.0, hemoglobin 8.2, hematocrit 25.7, platelet count 239. Sodium 131, potassium 4.7, chloride 99, bicarbonate 24, BUN 17, EGFR more than 60. ASSESSMENT: 1. Extensive small cell lung cancer. 2. Heart failure. 3. Anemia of neoplastic disorder. 4. Leukocytosis, reactive. 5. Extensive small cell lung cancer. 6. Bacteremia. PLAN: The patient is already on broad-spectrum antibiotics. His MediPort was removed. He will continue antibiotics and PICC line to be placed once the cultures ____. He will be continuing on chemotherapy. Once it heals then they [place], [place] PROGRESS NOTE NAME: TOBI GARIBAY UNIT #: [id number] ROOM: 403 DOCTOR: JOSELO TERRELL MD BIRTHDATE: [birth year] got MediPort replaced again. I had a detailed discussion with the patient about it, he seemed to understand it. Ample time was given to the patient to ask me questions. JOSELO TERRELL MD CM:PNTRANS 1202 0147 JOSELO TERRELL MD 06/24/17 0145 interface
--- NOTE | ~2017-06-18 | PR ---
[place], [place] PROGRESS NOTE NAME: TOBI GARIBAY UNIT #: [id number] ROOM: 403 DOCTOR: ANGELIKA POWELLNOVEMBER BIRTHDATE: [birth year] DOS: 06/21/2017 SUBJECTIVE: The patient is being followed for an infected MediPort. He has positive blood cultures for Staph epidermidis with his admitting blood cultures from 06/18/2017, also the blood cultures from 06/19/2017 with gram-positive cocci in pairs and clusters. I did speak to microbilology today who stated that there are similar morphology to the Staph epidermidis. His repeat blood cultures from yesterday are pending. Dr. Howard was consulted earlier today and has since removed his MediPort. He continues on IV vancomycin. He has some nausea with the effusions but seems to do well as long as the vancomycin is run slowing. No diarrhea, no rash or itch. No cough or shortness of breath. No fevers or shaking chills. VITAL SIGNS: Show temperature 98.0, pulse 120, respirations 20, BP 117/77. LABORATORY DATA: Showed WBC is 10.9, platelets 230. BUN 21, creatinine 0.97. CURRENT MEDICATIONS: Include vancomycin, Protonix, Zocor, Zestril, insulin, Flomax, sodium bicarbonate, Megace, Levemir, Os-Alejandro, Lovenox, Restoril, milk of mag, Dulcolax, [place], Tylenol. PHYSICAL EXAMINATION: GENERAL: A 61-year-old male in no acute distress. HEAD, EYES, EARS, NOSE AND THROAT: Normocephalic, no thrush. LUNGS: Clear to auscultation bilaterally. Respirations even and unlabored. HEART: Regular rhythm. No murmur appreciated. Left chest postop dressing dry and intact. ABDOMEN: Soft, nondistended. EXTREMITIES: +3 edema bilateral lower extremities. SKIN: Warm, pale, dry, free of rashes. ASSESSMENT: Infected MediPort status post removal. PLAN: Continue the IV vancomycin. As long as the repeat blood cultures remain sterile, I anticipate 2 weeks of IV antibiotics. Case discussed with Dr. Melisa Salamanca. MARGARET CARNEY CNP [place], [place] PROGRESS NOTE NAME: TOBI GARIBAY UNIT #: [id number] ROOM: 403 DOCTOR: ANGELIKA POWELLNOVEMBER BIRTHDATE: [birth year] MELISA SALAMANCA MD CM:PNMICHELLE 14 04 ANGELIKA POWELL 06/21/17 180 interface
--- NOTE | ~2017-06-18 | PR ---
[place], [place] PROGRESS NOTE NAME[id number] UNIT #: [id number] ROOM: 403 DOCTOR: JOSELO TERRELL MD BIRTHDATE: [birth year] DOS: 06/24/2017 SUBJECTIVE: The patient is doing much better. His MediPort was removed and he is on IV vancomycin. His blood culture for a MediPort grew Staph epidermidis and repeat blood cultures were positive. REVIEW OF SYSTEMS HEENT: No trouble swallowing. No double vision. No loss of vision. No pain. ENT AND RESPIRATORY: No wheeze. No change in voice. No cough. No shortness of breath. No coughing up blood. No epistaxis. CARDIOLOGIC: No chest pain. No dizziness. No irregular heartbeat. No leg edema. No palpitations. No shortness of breath. HEMATOLOGIC AND LYMPH: No past transfusion. No fatigue. No loss of appetite. No easy bruising. GASTROENTEROLOGIC: No change in bowel habits. No vomiting blood. No abdominal cramping. No nausea. No vomiting. No diarrhea. No constipation. No blood in stool. MALE REPRODUCTIVE: No testicular pain. No penile discharge. MUSCULOSKELETAL: No back pain. No muscle pain or weakness. No tingling/numbness. UROLOGIC: No pain with urination. No difficulty urinating. No frequent urination. NEUROLOGIC: No burning pain in feet. No trouble with coordination. No loss of consciousness. No headache. No tingling/numbness. No memory loss. PHYSICAL EXAMINATION: GENERAL: Pleasant gentleman, in no apparent distress. VITAL SIGNS: Blood pressure is 126/72, respirations 20, pulse 106, temperature 98.0 HEENT: Normocephalic, atraumatic NECK AND THYROID: Supple. No JVD, thyromegaly, or lymphadenopathy. HEART: Normal S1, S2. Regular rate and rhythm. LUNGS: Clear to auscultation and percussion. ABDOMEN: Soft. Nontender, nondistended. Bowel sounds present. EXTREMITIES: Normal ROM. No clubbing. No edema. LABORATORY DATA: White count of 15.7, hemoglobin 8.2, hematocrit 25.7, platelet count of 239,000. Sodium 131, potassium 4.7, chloride 99, bicarbonate 24, BUN 17, EGFR more than 60. Blood cultures have grown Staph epidermidis. ASSESSMENT: 1. Infected MediPort removal. Repeat blood cultures negative. 2. Extensive small cell lung cancer. 3. Leukocytosis, reactive. 4. Anemia of neoplastic disorder/secondary to chemotherapy. 5. There is complete resolution of chronic pulmonary emboli as evidenced by CT scan. PLAN: The patient will be going home and will follow with us as an outpatient. Once his infection resolves, we will get a MediPort put in. In the meantime, we [place], [place] PROGRESS NOTE NAME: TOBI GARIBAY UNIT #: [id number] ROOM: 403 DOCTOR: XANDER MALONEY,JOSELO BIRTHDATE: [birth year] will keep a watch on his hemoglobin and hematocrit. If it drops further, then he may need transfusion. I had a detailed discussion with the patient about it and he seemed to understand it. Ample time was given to the patient to ask me questions. JOSELO TERRELL MD CM:PNTRANS [phone] JOSELO TERRELL MD 06/25/17 1120 interface
--- NOTE | ~2017-06-18 | PR ---
[place], [place] PROGRESS NOTE NAME: TOBI GARIBYA UNIT #: [id number] ROOM: 403 DOCTOR: ANGELIKA POWELL,NOVEMBER BIRTHDATE: [birth year] DOS: 06/20/2017 SUBJECTIVE: The patient is a 61-year-old male who was receiving chemotherapy as an outpatient for small cell lung CA. His admitting blood cultures are growing what is likely Staph, gram-positive cocci in clusters. He had the positive blood cultures are from the MediPort. The peripheral blood cultures are negative. His MRSA screen was positive. We do not have an indication of bacterial yet. He had repeat blood cultures done yesterday, which are now from the MediPort, which are again growing gram-positive cocci in pairs and clusters. He remains on vancomycin. He was also diagnosed with CHF. He is alert and oriented, frustrated. He denies vomiting or diarrhea, but he does complain of some nausea. Denies pain. Has little nonproductive cough. Denies shortness of breath, but seems to be a little short of breath at rest. He is on O2 via nasal cannula. He has been afebrile. VITAL SIGNS: Show temperature 97.9, pulse 120, respirations 18, BP 116/71. LABORATORY DATA: Shows vancomycin trough 21.8, WBC is 11.5, platelets 235, BUN 19, creatinine 0.85. CURRENT MEDICATIONS: Include vancomycin, Protonix, Zocor, Zestril, insulin, Flomax, sodium bicarb, Megace, Levemir, Os-Alejandro, Lovenox, Restoril, Zofran, milk of mag, Dulcolax, [place] and Tylenol. PHYSICAL EXAMINATION: GENERAL: A 61-year-old male in no acute distress. HEAD, EYES, EARS, NOSE AND THROAT: Normocephalic. No thrush. LUNGS: Clear to auscultation bilaterally. Respirations even and unlabored. HEART: Regular rhythm. No murmur appreciated. CHEST: Left chest MediPort is accessed. ABDOMEN: Soft, nontender. EXTREMITIES: +2 to 3 edema bilateral lower extremities. SKIN: Warm, pale, dry, free of rashes. ASSESSMENT: Infected MediPort with multiple positive blood cultures from the port. PLAN: At this point, given multiple positive blood cultures, a consideration needs to be given to removing the MediPort. We will repeat blood cultures again from the MediPort, await identification of the bacteria, which is likely Staph. 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 If it approves to be Staph aureus, then we will also need an echocardiogram, continue the vancomycin. Case discussed with Dr. Melisa Salamanca. ADDENDUM I agree with the above plans as described. We will follow the patient up clinically and adjust accordingly. [place], [place] PROGRESS NOTE NAME: TOBI GARIBAY [place] UNIT #: [id number] ROOM: 403 DOCTOR: ANGELIKA POWELLNOVEMBER BIRTHDATE: [birth year] MARGARET CARNEY CNP MELISA SALAMANCA MD CM:PNTRANS [id number] NOVEMBER ANGELIKA POWELL 06/21/17 0029 interface
--- NOTE | ~2017-06-18 | PR ---
[place], [place] PROGRESS NOTE NAME: TOBI GARIBAY UNIT #: [id number] ROOM: 403 DOCTOR: CHEIKH MALONEY,MELISA [place] BIRTHDATE: [birth year] DOS: 06/22/2017 ADDENDUM I agree with above plans after reviewing the labs, microbiology, and chart. Continue to follow the patient up clinically and adjust accordingly. MELISA SALAMANCA MD CM:PNTRANS 26 31 MELISA SALAMANCA MD 06/22/171929 interface
--- NOTE | ~2017-06-18 | PR ---
[place], [place] PROGRESS NOTE [facility]: [id number] UNIT #: [id number] ROOM: 403 DOCTOR: JOSELO TERRELL MD BIRTHDATE: [birth year] DOS: 06/19/2017 SUBJECTIVE: The patient is doing much better. He is feeling good. REVIEW OF SYSTEMS HEENT: No trouble swallowing. No double vision. No loss of vision. No pain. ENT AND RESPIRATORY: No wheeze. No change in voice. No cough. No shortness of breath. No coughing up blood. No epistaxis. CARDIOLOGIC: No chest pain. No dizziness. No irregular heartbeat. No leg edema. No palpitations. No shortness of breath. HEMATOLOGIC AND LYMPH: No past transfusion. No fatigue. No loss of appetite. No easy bruising. GASTROENTEROLOGIC: No change in bowel habits. No vomiting blood. No abdominal cramping. No nausea. No vomiting. No diarrhea. No constipation. No blood in stool. MALE REPRODUCTIVE: No testicular pain. No penile discharge. MUSCULOSKELETAL: No back pain. No muscle pain or weakness. No tingling/numbness. UROLOGIC: No pain with urination. No difficulty urinating. No frequent urination. NEUROLOGIC: No burning pain in feet. No trouble with coordination. No loss of consciousness. No headache. No tingling/numbness. No memory loss. PHYSICAL EXAMINATION GENERAL: Pleasant gentleman in no apparent distress. VITAL SIGNS: Stable. He is afebrile. HEENT: Normocephalic, atraumatic NECK AND THYROID: Supple. No JVD, thyromegaly, or lymphadenopathy. HEART: Normal S1, S2. Regular rate and rhythm. LUNGS: Clear to auscultation and percussion. ABDOMEN: Soft. Nontender, nondistended. Bowel sounds present. EXTREMITIES: Normal ROM. No clubbing. No edema. LABORATORY DATA: White count 10.4, hemoglobin 7.5, hematocrit 23.9, platelet count 228. Chemistries: Glucose 169, EGFR is more than 60, creatinine 1.05, sodium 148, potassium 4.5, chloride 98, magnesium 1.1. ASSESSMENT: 1. ____ small cell lung cancer. 2. Anemia of neoplastic disorder. 3. Positive one blood culture from [facility]. PLAN: The patient is already on broad spectrum antibiotics ____blood cultures will be done. If his hemoglobin and hematocrit drops, we will give him packed RBC and otherwise close followup. ____ overall condition improves. I had a detailed discussion with the patient about it and he seemed to understand it. We will review the CT scans [place], [place] PROGRESS NOTE NAME: TOBI GARIBAY UNIT #: [id number] ROOM: 403 DOCTOR: JOSELO TERRELL MD BIRTHDATE: [birth year] JOSELO TERRELL MD CM:PNTRANS [id number] JOSELO TERRELL MD 06/19/17 1334 interface
--- NOTE | ~2017-06-18 | CON ---
[place], [place] REPORT OF CONSULTATION NAME: TOBI GARIBAY UNIT #: [id number] ROOM: 403 DOCTOR: ANGELIKA POWELL,NOVEMBER BIRTHDATE: [birth year] DOS: 06/19/2017 HISTORY OF PRESENT ILLNESS: The patient is a 61-year-old male who was admitted with cough and shortness of breath. He was diagnosed with CHF. He has small cell lung CA for which he is currently receiving chemo. He had blood cultures done at the time of admission peripherally and from his MediPort. Blood cultures from the MediPort have gram-positive cocci in clusters and pairs this morning at 24 hours. ID is consulted for bacteremia. The patient had had a prior MediPort in place that was removed back in April due to erosion through the skin. I did review his prior cultures from past hospitalizations and he had no positive blood cultures prior to this. He denies any fevers or chills. He states that his breathing is better. He is back to baseline. He has cough that is occasionally productive of his blood last night. He has been afebrile since admission yesterday. WBCs were 14.1 on admission; however, he has been started on vancomycin. 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 SOCIAL HISTORY: He is a reformed smoker, 3 packs per day for 35 years, quit years ago. No alcohol or illicit drug use. FAMILY MEDICAL HISTORY: Father with lung CA and [place]. Mother with history of [place]. ALLERGIES: No known drug allergies. CURRENT MEDICATIONS: Include Protonix, Zocor, Zestril, vancomycin, insulin, Flomax, Megace, Levemir, Os-Alejandro, Lovenox, Restoril, Zofran, milk of mag, Dulcolax, [place], Tylenol. RADIOLOGY: He had a CTA of the chest that showed resolution of chronic pulmonary embolism and increase in size of his left upper lobe lung mass and small pleural effusions. LABORATORY DATA: WBC is down today to 10.4, platelets 228, BUN 19, creatinine 1.05, lactic acid 1.4. REVIEW OF SYSTEMS: As above in history of present illness, denies any pain, denies any fevers or chills at home. No recent nausea and vomiting, has diarrhea times with chemotherapy, though he has had none in the last few days. No rash or itch. He does have lower extremity edema. Breathing has improved and he states it is back to baseline. Again, had hemoptysis last night, has left chest MediPort. Further review of systems is unremarkable. PHYSICAL EXAMINATION: VITAL SIGNS: Show temperature 97.2, pulse 119, respirations 20, BP 130/80. GENERAL: A 61-year-old male in no acute distress, nontoxic in [place], [place] REPORT OF CONSULTATION NAME: TOBI GARIBAY UNIT #: [id number] ROOM: [facility] DOCTOR: ANGELIKA POWELLNOVEMBER BIRTHDATE: [birth year] appearance. HEAD, EYES, EARS, NOSE AND THROAT: Normocephalic. Mucous membranes pink and moist. No thrush. NECK: No cervical lymphadenopathy. LUNGS: Clear to auscultation bilaterally. Respirations even and unlabored. HEART: Regular rhythm. No murmur appreciated. Left chest MediPort is accessed no visible erythema. ABDOMEN: Soft, nontender, nondistended, positive bowel sounds. EXTREMITIES: Bilateral lower extremities +3 edema. No deformity. SKIN: Warm, dry, pale. Free of rashes. ASSESSMENT: Staph bacteremia with positive blood cultures from MediPort. Blood cultures were repeated this morning peripherally and he needs to have cultures repeated from the MediPort. Continue the vancomycin, follow up on repeat blood cultures. If this proves to be Staph aureus or he has multiple positive blood cultures, the MediPort will need to be removed. Case discussed with Dr. Melisa Salamanca. ADDENDUM After reviewing the chart, labs, microbiology and radiographs, I agree with the above plans as described. We will follow the patient up clinically and adjust accordingly. MARGARET CARNEY CNP MELISA SALAMANCA MD CM:CONSTR:REPORT OF CONSULTATION 1011 06/19/17 1841 interface
--- NOTE | ~2017-06-18 | PR ---
[place], [place] PROGRESS NOTE NAME[id number] UNIT #: [id number] ROOM: 403 DOCTOR: JOSEOL TERRELL MD BIRTHDATE: [birth year] DOS: 06/20/2017 SUBJECTIVE: The patient is doing much better. He is sitting in the chair. He is awake, alert and responsive. He says he is less short of breath. REVIEW OF SYSTEMS HEENT: No trouble swallowing. No double vision. No loss of vision. No pain. ENT AND RESPIRATORY: No wheeze. No change in voice. No cough. No shortness of breath. No coughing up blood. No epistaxis. CARDIOLOGIC: No chest pain. No dizziness. No irregular heartbeat. No leg edema. No palpitations. No shortness of breath. HEMATOLOGIC AND LYMPH: No past transfusion. No fatigue. No loss of appetite. No easy bruising. GASTROENEROLOGIC: No change in bowel habits. No vomiting blood. No abdominal cramping. No nausea. No vomiting. No diarrhea. No constipation. No blood in stool. MALE REPRODUCTIVE: No testicular pain. No penile discharge. MUSCULOSKELETAL: No back pain. No muscle pain or weakness. No tingling/numbness. UROLOGIC: No pain with urination. No difficulty urinating. No frequent urination. NEUROLOGIC: No burning pain in feet. No trouble with coordination. No loss of consciousness. No headache. No tingling/numbness. No memory loss. PHYSICAL EXAMINATION: GENERAL: Pleasant gentleman, in no apparent distress. VITAL SIGNS: Stable and he is afebrile. HEENT: Normocephalic, atraumatic NECK AND THYROID: Supple. No JVD, thyromegaly, or lymphadenopathy. HEART: Normal S1, S2. Regular rate and rhythm. LUNGS: Clear to auscultation and percussion. ABDOMEN: Soft. Nontender, nondistended. Bowel sounds present. EXTREMITIES: Normal ROM. No clubbing. No edema. LABORATORY DATA: Sodium 128, potassium 4.5, chloride 98, bicarbonate 22. Folate was 5.84. B12 was 1219. White count of 11.5, hemoglobin 8.3, hematocrit 25.7, platelet count of 239. ASSESSMENT: 1. Extensive small cell lung cancer. 2. Anemia of neoplastic disorder/secondary to chemotherapy. 3. Congestive heart failure. 4. Bacteremia with positive blood cultures. PLAN: The patient is on broad-spectrum antibiotics. In the meantime, continue diuresis. Hemoglobin and hematocrit is low, we will keep a close watch. If it drops further, then transfusion. In the meantime, hold chemotherapy. Had had a detailed discussion with the resident. Ample time was given for the patient to ask me questions. [place], [place] PROGRESS NOTE NAME: TOBI GARIBAY [place] UNIT #: [id number] ROOM: 403 DOCTOR: JOSELO TERRELL MD BIRTHDATE: [birth year] JOSELO TERRELL MD CM:PNTRANS [phone] JOSELO TERRELL MD 06/20/1709 interface
--- NOTE | ~2017-06-18 | PR ---
[place], [place] PROGRESS NOTE NAME: TOBI GARIBAY UNIT #: [id number] ROOM: 403 DOCTOR: ANGELIKA POWELL,NOVEMBER BIRTHDATE: [birth year] DOS: 06/22/2017 SUBJECTIVE: The patient is being followed for an infected MediPort, status post removal. The blood cultures from the night remain sterile. He had positive blood cultures from and the for Staphylococcus epidermidis. He is also positive for a MRSA screen. He is status post removal of the MediPort yesterday on the . Do not see where tip culture was performed. He was receiving chemotherapy for his lung cancer. He is alert and oriented. Denies any fevers or chills. No nausea, vomiting or diarrhea. No rash or itch. Denies cough or shortness of breath. LABORATORY DATA: Show WBC is 15.8, platelets 234. BUN 18, creatinine 1.04. Vancomycin trough 22.5, dosing is being adjusted by Cardiology. He did have an echocardiogram done, which did not demonstrate any agitation. CURRENT MEDICATIONS: Glucotrol, Glucophage, vancomycin, Protonix, Zocor, Zestril, Flomax, sodium bicarb, Megace, Levemir, Lovenox, Restoril, Zofran, milk of mag, Dulcolax, [place], and Tylenol. PHYSICAL EXAMINATION: VITAL SIGNS: Show temp 97.8, pulse 130, respirations 22, BP 136/82. GENERAL: A 61-year-old male in no acute distress. HEAD, EYES, EARS, NOSE, AND THROAT: Normocephalic, no thrush. LUNGS: Clear to auscultation bilaterally. Respirations even and unlabored. HEART: Regular rhythm. No murmur appreciated. ABDOMEN: Soft, nondistended. EXTREMITIES: +3 edema bilateral lower extremities. Left chest postop dressing is dry and intact where his MediPort was removed. SKIN: Warm, dry, pale. Free of rashes. ASSESSMENT: Infected MediPort, status post removal on the with Staphylococcus epidermidis bacteremia. As long as the blood cultures remain sterile from the night, tomorrow he could get a PICC line inserted and arrangements could be made for discharge on Saturday. Case discussed with Dr. Melisa Salamanca. MARGARET SHERRY CARNEY [place], [place] PROGRESS NOTE NAME: TOBI GARIBAY UNIT #: [id number] ROOM: 403 DOCTOR: ANGELIKA POWELL,NOVEMBER BIRTHDATE: [birth year] MELISA SALAMANCA MD CM:PNMICHELLE [id number] NOVEMBER ANGELIKA POWELL 06/24/17 1049 interface
[~2017-06-18 09:44] MED LIST changes: +PRAVASTATIN SOD20 MG PO; -PRAVASTATIN SOD40 MG PO
[2017-06-18] MEDS ORDERED: ENOXAPARIN40 MG/0.2 SQ (10:01)
[2017-06-18 10:24] LABS: BASO % 0.3 % (0.0-1.0); EOS % 0.1 % (1.0-4.0); HEMOGLOBIN 7.3 g/dl (14.0-18.0); LYMPH # 0.8 10*3/uL (1.3-4.4); LYMPH % 5.4 % (27.0-41.0); MEAN CELL VOLUME 90.9 fl (80.0-94.0); MEAN CORPUSCULAR HGB 28.9 pg (27.0-31.0); MEAN CORPUSCULAR HGB CONC 31.7 g/dl (33.0-37.0); MEAN PLATELET VOLUME 9.8 fl (9.6-12.3); MONO # 1.1 10*3/uL (0.1-1.0); NEUT # 11.9 10*3/uL (2.3-7.9); NEUT % 84.1 % (47.0-73.0); PLATELET COUNT AUTOMATED 282 10*3/uL (130-400); RED BLOOD COUNT 2.53 10*6/uL (4.50-5.90); RED CELL DISTRI WIDTH 19.8 % (0-14.5); WHITE BLOOD COUNT 14.1 10*3/uL (4.8-10.8)
[2017-06-18 10:38] LABS: ACT PARTIAL THROMBO TIME 27.3 SECONDS (20.8-31.5); INTERNATIONAL NORM RATIO 1.1 (2.0-3.5)
[2017-06-18 10:40] LABS: ALBUMIN 3.2 gm/dl (3.1-4.5); ALKALINE PHOSPHATASE 101 U/L (45-117); BUN 22 mg/dl (7-24); CHLORIDE 97 mmol/L (98-107); POTASSIUM 4.1 mmol/L (3.5-5.1); SGOT/AST 9 IU/L (3-35); SGPT/ALT 18 U/L (12-78); SODIUM 130 mmol/L (136-145); TOTAL PROTEIN 7.5 gm/dL (6.4-8.2)
[2017-06-18 10:41] LABS: TROPONIN I 0.025 ng/ml (<0.045)
--- NOTE | 2017-06-18 12:20 | NUR ---
TOOK REPORT ON PATIENT FROM PREVIOUS NURSE. PATIENT RESTING COMFORTABLY NO NEEDS AT THIS TIME
--- NOTE | 2017-06-18 13:07 | NUR ---
CALLED REPORT TO 4E, NURSE UNABLE TO TAKE REPORT AT THIS TIME. SHE WILL CALL BACK WHEN ABLE
--- NOTE | 2017-06-18 13:30 | NUR ---
A 61, admitted to , under the services of PARAM Moran DO with a diagnosis of HEART FAILURE,ANEMIA. Chief complaint is SHORTNESS OF BREATHE. Patient arrived via bed from ER. Monitor applied. Initial assessment completed. Vital signs taken and recorded. PARAM MORAN DO notified of admission to the unit. Orders received. See assessment for past medical history, medications and allergies. Patient and/or family oriented to unit. [facility] visitation policy reviewed. Clothing/patient valuable form completed. ANGELICA ROBERTS R
--- NOTE | 2017-06-18 13:39 | NUR ---
DR. TERRELL INTO SEE PT.
--- NOTE | 2017-06-18 13:42 | NUR ---
DR. RICHTER INTO SEE PT.
--- NOTE | 2017-06-18 14:00 | NUR ---
BLOOD INFUSING WITH NO PROBLEM. NO C/O AT THIS TIME. CALL LIGHT IN REACH.
--- NOTE | 2017-06-18 14:15 | NUR ---
CALLED [facility] MEDICATIONS VERIFIED.
--- NOTE | 2017-06-18 14:34 | NUR ---
PER DR. NADEEM HARRIS TO USE [employer] FOR LAB DRAWS AND MEDS.
--- NOTE | 2017-06-18 18:13 | NUR ---
PATIENT IS RESTING COMFORTABLY IN BED. PATIENT TOLERATED TRANSFUSION WELL AND SKIN COLOR IS LESS PALE THEN UPON ADMISSION. PATIENT DENIES ANY PAIN OR DISCOMFORT. PATIENT HAS A MEDIPORT ACCESS IN THE LEFT CHEST THAT CAN BE USED FOR MEDICATIONS AND INFUSIONS. PATIENT DENIES ANY SOB, N/V/D, OR DIZZINESS UPON STANDING PATIENT IS MONITORED AND HAS SINUS TACHY IN THE 120'S. PATIENT IS ALERT AND ORIENTED. HOB ELEVATED. CALL LIGHT IS WITHIN REACH. SEE SHIFT ASSESSMENT.
--- NOTE | 2017-06-18 21:15 | NUR ---
PT RESTING QUIETLY IN BED WITH EYES CLOSED. AWOKE EASILY FOR LOVENOX INJECTION. NO C/O VOICED AT THIS TIME. CALL LIGHT IN REACH.
[2017-06-19] VITALS (11 sets, daily range): BP systolic 120–141; BP diastolic 76–90
--- NOTE | 2017-06-19 02:00 | NUR ---
LAB CALLED CRITICAL POSITIVE BLOOD CULTURES. CALLED AND MADE DR ARANGO AWARE. HE STATES HE WILL PUT ORDERS IN
--- NOTE | 2017-06-19 02:08 | NUR ---
24 HR chart check completed.
--- NOTE | 2017-06-19 03:45 | NUR ---
IV VANCO INITIATED FOR +BC. PT TEACHING GIVEN ON TEST RESULTS AND IV ATBS. PT REFUSING DARIEN HOSE AT THIS TIME. PT EXPRESSING UNHAPPINESS W/IV ATBS AND POSSIBLY HAVING TO STAY IN HOSPITAL LONGER. PT TEACHING GIVEN. PT ENCOURAGED TO SPEAK W/ IN THE AM. HEMOPTYSIS NOTED. PT STATES THIS IS NEW ONSET. WILL CONTINUE TO MONITOR. WATER OFFERED AND ACCEPTED.
[2017-06-19 07:29] LABS: BASO # 0.1 10*3/uL (0.0-0.1); BASO % 0.5 % (0.0-1.0); EOS % 0.1 % (1.0-4.0); HEMATOCRIT 23.9 % (42.0-52.0); HEMOGLOBIN 7.5 g/dl (14.0-18.0); LYMPH # 0.4 10*3/uL (1.3-4.4); LYMPH % 3.7 % (27.0-41.0); MEAN CELL VOLUME 89.2 fl (80.0-94.0); MEAN CORPUSCULAR HGB CONC 31.4 g/dl (33.0-37.0); MEAN PLATELET VOLUME 10.2 fl (9.6-12.3); MONO # 0.8 10*3/uL (0.1-1.0); MONO % 8.1 % (3.0-9.0); NEUT # 8.8 10*3/uL (2.3-7.9); NEUT % 84.7 % (47.0-73.0); PLATELET COUNT AUTOMATED 228 10*3/uL (130-400); RED BLOOD COUNT 2.68 10*6/uL (4.50-5.90); RED CELL DISTRI WIDTH 19.1 % (0-14.5); WHITE BLOOD COUNT 10.4 10*3/uL (4.8-10.8)
--- NOTE | 2017-06-19 08:00 | NUR ---
PATIENT IS RESTING IN BED. PATIENT SKIN IS STILL PALE AND HR IS TACHYCARDIC. PATIENT HAS A PRODUCTIVE COUGH THAT HAS BLOOD-TINGED SPUTUM. PATIENT IS ABLE TO AMBULATE INDEPENDENTLY AND DENIES ANY DIZZINESS, CP, OR DISCOMFORT. PATIENT HAS SHALLOW RESPS AND IS DIMINISHED BILAT. HOB IS ELEVATED, PT IS ON RA AND DENIES SOB. PATIENT REFUSES DARIEN HOSE. CONTACT ISOLATION. CALL LIGHT IS WITHIN REACH.
[2017-06-19 08:03] LABS: ACT PARTIAL THROMBO TIME 27.4 SECONDS (20.8-31.5); BUN 19 mg/dl (7-24); CHLORIDE 98 mmol/L (98-107); CREATININE 1.05 mg/dL (0.70-1.30); INTERNATIONAL NORM RATIO 1.1 (2.0-3.5); PHOSPHOROUS 3.4 mg/dL (2.5-4.9); POTASSIUM 4.5 mmol/L (3.5-5.1); SODIUM 128 mmol/L (136-145)
--- NOTE | 2017-06-19 08:06 | NUR ---
SPOKE WITH DR. SILVER REGARDING REGARDING HOME MEDICATIONS NEEDED ORDERED. HE WILL TAKE CARE OF IT.
--- NOTE | 2017-06-19 08:19 | NUR ---
SPOKE WITH DR. SILEVR REGARDING PT H&H THIS AM.
--- NOTE | 2017-06-19 08:20 | NUR ---
STUDENT IS ON THE FLOOR. THEY WILL BE DOING SOCUMENTATION AND MEDICATION ADMINISTRATIONS. WILL CONTINUE TO MONITOR PATIENT.
[2017-06-19 09:04] LABS: VITAMIN D, 25-HYDROXY 26.2 ng/mL (30-100)
--- NOTE | 2017-06-19 12:20 | NUR ---
PATIENT RESTING IN BED. BLOOD INFUSING WITHOUT ANY ISSUE, CALL LIGHT IS WITHIN REACH.
--- NOTE | 2017-06-19 15:46 | NUR ---
PATIENT RESTING IN BED, FAMILY AT THE BEDSIDE. BLOOD TRANSFUSION TOLERATED WELL. CALL LIGHT IS WITHIN REACH.
--- NOTE | 2017-06-19 18:14 | NUR ---
PATIENT IS LAYING IN BED WITH FAMILY MEMBER AT THE BEDSIDE. PATIENT HAS BEEN ABLE TO EAT 100% OF MEALS WITHOUT ANY N/V/D. PATIENT IS AMBULATORY WITHOUT ASSIST AND DENIES ANY EPISODES OF DIZZINESS WHILE AMBULATING. PATIENT DENIES CP OR DISCOMFORT THROUGHOUT THE SHIFT. PATIENT PREVIOUSLY HAD A PRODUCTIVE COUGH WITH BLOOD-TINGED SPUTUM. DURING TODAY, COUGH HAS BEEN NON-PRODUCTIVE. HOB IS ELEVATED, CALL LIGHT IS WITHIN REACH, SEE SHIFT ASSESSMENT.
--- NOTE | 2017-06-19 20:09 | NUR ---
1939 SITTING UP ON THE SIDE OF THE BED. PT IS ALERT. FLAT AFFECT. C MEDIPORT INTACT. NO C/O'S VOICED AT PRESENT. NO DISTRESS NOTED.
--- NOTE | 2017-06-19 21:45 | NUR ---
2115 NORCO 1 PO GIVEN FOR C/O'S H/A. RATES PAIN AN "8". WILL MONITOR.
--- NOTE | 2017-06-19 22:03 | NUR ---
EARLIER PAIN MED EFFECTIVE. RESTING IN BED WATCHING TV. CONDITION GUARDED.
[2017-06-20] VITALS: BP 126/82
--- NOTE | 2017-06-20 02:27 | NUR ---
PATIENT RESTING IN CHAIR AT BEDSIDE WITH NO S/S OF DISTRESS. CALL LIGHT IN REACH
--- NOTE | 2017-06-20 05:38 | NUR ---
PATIENT DRINKING ORANGE JUICE AND EATING CRACKERS WITH PEANUT BUTTER FOR BLOOD SUGAR OF 63. DENIES ANY SYMPTOMS OF HYPOGLYCEMIA
--- NOTE | 2017-06-20 06:04 | NUR ---
BLOOD SUGAR RECHECK 110
[2017-06-20 06:09] LABS: BASO # 0.1 10*3/uL (0.0-0.1); BASO % 0.4 % (0.0-1.0); EOS % 0.1 % (1.0-4.0); HEMATOCRIT 25.7 % (42.0-52.0); HEMOGLOBIN 8.3 g/dl (14.0-18.0); LYMPH # 0.6 10*3/uL (1.3-4.4); LYMPH % 5.5 % (27.0-41.0); MEAN CELL VOLUME 87.1 fl (80.0-94.0); MEAN CORPUSCULAR HGB 28.1 pg (27.0-31.0); MEAN CORPUSCULAR HGB CONC 32.3 g/dl (33.0-37.0); MEAN PLATELET VOLUME 10.5 fl (9.6-12.3); MONO # 0.9 10*3/uL (0.1-1.0); MONO % 7.8 % (3.0-9.0); NEUT # 9.7 10*3/uL (2.3-7.9); NEUT % 84.8 % (47.0-73.0); PLATELET COUNT AUTOMATED 239 10*3/uL (130-400); RED BLOOD COUNT 2.95 10*6/uL (4.50-5.90); RED CELL DISTRI WIDTH 18.6 % (0-14.5); WHITE BLOOD COUNT 11.5 10*3/uL (4.8-10.8)
[2017-06-20 06:27] LABS: BUN 19 mg/dl (7-24); CHLORIDE 97 mmol/L (98-107); CREATININE 0.85 mg/dL (0.70-1.30); POTASSIUM 4.2 mmol/L (3.5-5.1); SODIUM 129 mmol/L (136-145)
--- NOTE | 2017-06-20 07:50 | NUR ---
PATIENT IS RESTING IN THE BEDSIDE CHAIR. PATIENT IS AMBULATORY AND ALERT AND ORIENTED. PATIENT HAS A HEADACHE IN THE BASE OF THEIR SKULL THAT IS RATED A 5/10. PATIENT DENIES ANY SOB OR DIZZINESS UPON STANDING. PATIENT IS CURRENTLY EATING BREAKFAST, NO FURTHER REQUESTS AT THIS TIME. CALL LIGHT WITHIN REACH, SEE SHIFT ASSESSMENT.
[2017-06-20 08:00] VITALS: BP 118/71
--- NOTE | 2017-06-20 08:59 | NUR ---
PATIENT GIVEN NORCO PER PT REQUEST FOR HEADACHE PAIN RATED A 5/10 AND LOCATED IN THE BACKSIDE OF THEIR HEAD. WILL CONTINUE TO MONITOR AND REASSESS.
--- NOTE | 2017-06-20 09:05 | NUR ---
Emergency Vehicle Operator in to talk to patient. Patient states lives at home with daughter and grandchildren. There are fe steps in the home. Physician: felix nicole Pharmacy: [facility] Home health services: none Patient's level of ADLs: MINIMAL ASSIST Patient has working utilities: all working DME: christie [facility] Follow-up physician's appointment after d/c: will be made by hospitalist nurse director upon discharge Does patient want to access PORTAL?: no Discharge plan discussed with patient, patient lives at home with daughter and grandchildren, he states he gets around with a walker, discussed with him a discharge plan and patient stated he was going home, also discussed with him VNA and he stated he would think about this, case management will follow. DARRIN HENRY
--- NOTE | 2017-06-20 09:19 | NUR ---
SPOKE WITH DR. RICHTER MADE AWARE OF PT BSG THIS AM WAS 63, GAVE OJ AND NEXT BSG WAS 110. MADE AWARE OF PT ON LEVEMIR BID. NO NEW ORDERS.
--- NOTE | 2017-06-20 09:59 | NUR ---
PATIENT VERBALIZES THAT HEADACHE IS GONE AND PATIENT DENIES ANY PAIN AT THIS TIME. WILL CONTINUE TO MONITOR.
[2017-06-20 12:00] VITALS: BP 109/72
--- NOTE | 2017-06-20 12:15 | NUR ---
SITTING UP IN RECLINER CHAIR. RESP-EASY AND REGULAR. NO C/O AT THIS TIME. CALL LIGHT IN REACH.
[2017-06-20 16:00] VITALS: BP 116/71
--- NOTE | 2017-06-20 16:00 | NUR ---
PATIENT GIVEN NORCO PER REQUEST FOR HEADACHE RATED A 6/10. WILL CONTINUE TO MONITOR PATIENT AND REASSESS PAIN.
--- NOTE | 2017-06-20 16:00 | NUR ---
PHARMACY MADE AWARE OF CRITICAL VANC TROUGH OF 21.8. WILL HOLD VANCOMYCIN DOSE.
--- NOTE | 2017-06-20 16:05 | NUR ---
PATIENT IS RESTING COMFORTABLY IN THE BEDSIDE CHAIR. PATIENT HAS A HEADACHE THAT IS A DULL ACHY PAIN IN THE FRONT OF THEIR HEAD. PATIENT DENIES ANY CHEST PAIN, OR SOB. PATIENT IS ON THE MONITOR AND SINUS TACHY. PATIENT IS ABLE TO AMBULATE INDEPENDENTLY. PATIENT VERBALIZES CONCERNS ABOUT INSULIN COVERAGE. INSULIN COVERAGE HAS BEEN DISCUSSED WITH PATIENT. NO FURTHER REQUESTS AT THIS TIME. SEE SHIFT ASSESSMENT.
--- NOTE | 2017-06-20 18:42 | NUR ---
patient is resting in bed. patient denies any pain or discomfort. patient is ambulatory and denies dizziness and sob upon exertion. patient has been pleasant and cooperative throughout shift. no further requests at this time. call light is within reach. see shift assessment.
--- NOTE | 2017-06-20 19:39 | NUR ---
191 SURENDRA 1 PO FOR C/O'S H/A "BEHIND MY EYES". RATES PAIN AN "8". WILL CONT TO MONITOR.
[2017-06-20 20:00] VITALS: BP 106/60
--- NOTE | 2017-06-20 20:19 | NUR ---
SITTING UP IN THE CHAIR AT THE BEDSIDE. CONT TO C/O H/A. ONLY SL RELIEF OBTAINED FROM EARLIER [facility]. BLOOD DRAWN FOR CULTURES FROM [facility]. WILL CONT TO MONITOR
--- NOTE | 2017-06-20 21:24 | NUR ---
RESTING INBED WITH EYES CLOSED. APPEARS TO BE SLEEPING.
--- NOTE | 2017-06-20 22:08 | NUR ---
NO DISTRESS NOTED. CONDITION GUARDED
[2017-06-21] VITALS (9 sets, daily range): BP systolic 112–130; BP diastolic 64–89
--- NOTE | 2017-06-21 | NUR ---
PATIENT REQUESTED THAT HIS BLOOD SUGAR BE CHECKED AT MIDNIGHT. CHECKED AND WAS 174.
--- NOTE | 2017-06-21 02:59 | NUR ---
24 HR chart check completed.
[2017-06-21 06:50] LABS: BASO % 0.4 % (0.0-1.0); EOS % 0.2 % (1.0-4.0); HEMOGLOBIN 8.5 g/dl (14.0-18.0); LYMPH # 0.7 10*3/uL (1.3-4.4); MEAN CELL VOLUME 87.8 fl (80.0-94.0); MEAN CORPUSCULAR HGB 28.7 pg (27.0-31.0); MEAN CORPUSCULAR HGB CONC 32.7 g/dl (33.0-37.0); MEAN PLATELET VOLUME 10.3 fl (9.6-12.3); MONO # 0.8 10*3/uL (0.1-1.0); MONO % 7.3 % (3.0-9.0); NEUT # 9.3 10*3/uL (2.3-7.9); NEUT % 84.9 % (47.0-73.0); PLATELET COUNT AUTOMATED 230 10*3/uL (130-400); RED BLOOD COUNT 2.96 10*6/uL (4.50-5.90); RED CELL DISTRI WIDTH 18.6 % (0-14.5); WHITE BLOOD COUNT 10.9 10*3/uL (4.8-10.8)
--- NOTE | 2017-06-21 06:57 | NUR ---
NOTIFIED OF CRITICAL LAB DRAWN ON Jun.18 FROM [facility]-- POS. FOR [facility] EPI. SENSITIVITIES WILL BE RUN, PER LAB
[2017-06-21 07:15] LABS: BUN 21 mg/dl (7-24); CHLORIDE 98 mmol/L (98-107); CREATININE 0.97 mg/dL (0.70-1.30); POTASSIUM 4.9 mmol/L (3.5-5.1); SODIUM 129 mmol/L (136-145)
--- NOTE | 2017-06-21 09:00 | NUR ---
case management visits with patient, again discussed with him vna and he refused any services at this time
--- NOTE | 2017-06-21 09:35 | NUR ---
PERIPHERAL IV STARTED PER POLICY DR HANLEY NOTIFIED OF CONSULT FOR REMOVAL OF MEDIPORT
--- NOTE | 2017-06-21 10:15 | NUR ---
TO OR VIA BED
--- NOTE | 2017-06-21 11:03 | NUR ---
patient not available for echo. off the floor for other procedure.
--- NOTE | 2017-06-21 15:14 | NUR ---
HR 130'S ST, UPON CHECKING ON PT, HE IS UP WALKING AROUND ROOM, "IM FEELING FINE"
--- NOTE | 2017-06-21 22:00 | NUR ---
PATIENT REFUSED SLIDING SCALE COVERAGE FOR BLOOD SUGAR OF 371. STATING IT DOES NOT WORK AND HE IS NOT TAKING IT. PATIENT WAS VERY UPSET DURING THIS CONVERSATION STATING THAT THEY DO NOT LISTEN HE HAS TOLD THEM IT OES NOT WORK.
--- NOTE | 2017-06-21 22:04 | NUR ---
CALLED DOCTOR OPAL INFORMED HIM ABOUT PATIENT REFUSNG INSULIN COVERAGE HE SAID WHEN HE COMES UP HE WILL TALK TO HIM.
[2017-06-22] VITALS: BP 121/76
[2017-06-22 05:43] LABS: BASO # 0.1 10*3/uL (0.0-0.1); BASO % 0.4 % (0.0-1.0); EOS % 0.1 % (1.0-4.0); HEMATOCRIT 25.8 % (42.0-52.0); HEMOGLOBIN 8.4 g/dl (14.0-18.0); LYMPH # 0.7 10*3/uL (1.3-4.4); LYMPH % 4.3 % (27.0-41.0); MEAN CELL VOLUME 89.3 fl (80.0-94.0); MEAN CORPUSCULAR HGB 29.1 pg (27.0-31.0); MEAN CORPUSCULAR HGB CONC 32.6 g/dl (33.0-37.0); MEAN PLATELET VOLUME 10.1 fl (9.6-12.3); MONO # 1.3 10*3/uL (0.1-1.0); MONO % 8.2 % (3.0-9.0); NEUT # 13.5 10*3/uL (2.3-7.9); NEUT % 85.4 % (47.0-73.0); PLATELET COUNT AUTOMATED 234 10*3/uL (130-400); RED BLOOD COUNT 2.89 10*6/uL (4.50-5.90); RED CELL DISTRI WIDTH 18.5 % (0-14.5); WHITE BLOOD COUNT 15.8 10*3/uL (4.8-10.8)
[2017-06-22 05:52] LABS: BUN 18 mg/dl (7-24); CHLORIDE 99 mmol/L (98-107); CREATININE 1.04 mg/dL (0.70-1.30); POTASSIUM 4.8 mmol/L (3.5-5.1); SODIUM 132 mmol/L (136-145)
[2017-06-22 05:57] LABS: VANCOMYCIN TROUGH 22.5 ug/mL (10-20)
--- NOTE | 2017-06-22 07:46 | NUR ---
DR BLANCAS SEEN COMING OUT OF THE PATIENT'S ROOM
[2017-06-22 08:00] VITALS: BP 132/88
--- NOTE | 2017-06-22 08:02 | NUR ---
DR ETIENNE HERE - PT SEEN
--- NOTE | 2017-06-22 08:09 | NUR ---
PATIENT NOT WILLING TO REVIEW MED REC. SAID HE WILL DISCUSS WITH THE DOCTOR WHAT HE WANTS
--- NOTE | 2017-06-22 11:45 | NUR ---
PATIENT CONTINUES TO SIT IN THE CHAIR WITH IV ANTIBIOTIC INFUSING.
[2017-06-22 12:00] VITALS: BP 126/76
--- NOTE | 2017-06-22 13:28 | NUR ---
EATING IN THE CHAIR - FAMILY AT BEDSIDE. NO C/O
[2017-06-22 16:00] VITALS: BP 136/82
--- NOTE | 2017-06-22 16:09 | NUR ---
PATIENT SAID THAT HE AMBULATED TO THE BATHROOM,. PER THE PATIENT HE HAD A SOFT BROWN STOOL BUT BRIGHT RED BLOOD IN THE POT. WILL OBTAIN A STOOL SAMPLE. VOIDED BUT NO BLOOD IN THE URINE.
[2017-06-22 20:00] VITALS: BP 132/80
[2017-06-23] VITALS: BP 124/70
[2017-06-23 06:32] LABS: HEMATOCRIT 25.7 % (42.0-52.0); HEMOGLOBIN 8.2 g/dl (14.0-18.0); MEAN CELL VOLUME 89.9 fl (80.0-94.0); MEAN CORPUSCULAR HGB 28.7 pg (27.0-31.0); MEAN CORPUSCULAR HGB CONC 31.9 g/dl (33.0-37.0); MEAN PLATELET VOLUME 10.7 fl (9.6-12.3); PLATELET COUNT AUTOMATED 239 10*3/uL (130-400); RED BLOOD COUNT 2.86 10*6/uL (4.50-5.90); RED CELL DISTRI WIDTH 18.5 % (0-14.5)
[2017-06-23 06:53] LABS: TOTAL CELLS COUNTED 100 #CELLS
[2017-06-23 06:54] LABS: PLATELET SUFFICIENCY NORMAL (NORMAL); SCHISTOCYTES RARE
[2017-06-23 07:03] LABS: BUN 17 mg/dl (7-24); CHLORIDE 99 mmol/L (98-107); CREATININE 0.99 mg/dL (0.70-1.30); POTASSIUM 4.7 mmol/L (3.5-5.1); SODIUM 131 mmol/L (136-145)
[2017-06-23 08:00] VITALS: BP 122/72
--- NOTE | 2017-06-23 08:04 | NUR ---
NO CHANGE TO THE MED REC
[2017-06-23 12:00] VITALS: BP 130/78
[2017-06-23 16:00] VITALS: BP 112/74
[2017-06-23 20:00] VITALS: BP 122/70
--- NOTE | 2017-06-23 20:30 | NUR ---
PT SITTING IN RECLINER CHAIR IN ROOM. PT ENCOURAGED TO ELEVATE BLE D/T SWELLING. PT YELLS AT THIS NURSE, SAYING THAT HIS RLE IS ALWAYS SWOLLEN. PT DOES HOWEVER ELEVATE LEGS IN RECLINER. PT REFUSING DARIEN GREGORY. COOPERATIVE W/ASSESSMENT. URINE IN URINAL NOTED TO BE DARK YELLOW. PT DENIES DYSURIA. PT ENCOURAGED TO DRINK WATER. PT GIVEN ICE WATER PER HIS REQUEST. PT STATES THAT HIS HEMOPTYSIS IS LESS FREQUENT. CALL LIGHT IN REACH.
[2017-06-24] VITALS: BP 138/88
--- NOTE | 2017-06-24 03:15 | NUR ---
24 HR chart check completed.
--- NOTE | 2017-06-24 04:51 | NUR ---
PT AWAKE AND WATCHING TV IN RECLINER CHAIR. NO C/O VOICED AT THIS TIME.
--- NOTE | 2017-06-24 07:55 | NUR ---
THIS NURSE CALLED DR SILVER TO LET HIM KNOW OR WAS QUESTIONING PICC PLACEMENT WITH OUT THE FINAL BLOOD CULTURE RESULTS BEING AVAILABLE. DR DE PAZ CAME TO FLOOR AND SIGNED CONSENT. OR STILL CONCERNED SO THIS NURSE CALLED HIM BACK A SECOND TIME TO CLARIFY. DR SILVER SPOKE WITH DR RUTH AND CALLED THIS NURSE BACK TO STATE THAT IT WOULD PROBABLY BE OK TO PLACE PICC. HE STATED THAT IF THIS NURSE WANTED TO CALL INFECTIOUS DISEASE TO GET THERE BLESSING I COULD. THIS NURSE CALLED OR AND SPOKE WITH NATALIE BOTH. THIS NURSE TOLD THEM EXACTLY WHAT DR SILVER STATED.
[2017-06-24 08:00] VITALS: BP 120/75
--- NOTE | 2017-06-24 09:00 | NUR ---
case management received a message that patient would need home iv antibiotics daily for 2 weeks, [facility] [place] spoke to Maria Del Rosario, patient's information sent and Maria Del Rosario will start precert process. case management will follow
--- NOTE | 2017-06-24 09:16 | NUR ---
received order for home health IV ATB, only home health company that will accept [place] medicaid product is [employer]. Contacted Radha, faxed order and clinicals for referral.
--- NOTE | 2017-06-24 10:15 | NUR ---
PER DR RUTH INFECTIOUS DISEASE CALLED TO GET THEIR OPINION ON PICC PLACEMENT WITH BLOOD CULTURE FROM 06/20/17 BEING NEG BUT PRELIMINARY ONLY. THIS NURSE SPOKE WITH MARGARET CARNEY WHO WAS FINE WITH PICC PLACEMENT TODAY.
[2017-06-24] MEDS ORDERED: VANCOMYCIN2 GM/500 M IV (11:20)
--- NOTE | 2017-06-24 11:30 | NUR ---
CALL RECEIVED FROM RADIOLOGY STATING PICC PLACEMENT IS GOOD, AND IT IS OK TO USE.
[2017-06-24 12:00] VITALS: BP 126/72
--- NOTE | 2017-06-24 13:40 | NUR ---
case management called [facility] partners to check on status of authorization of iv medication, spoke to Joie, they have submitted the request to [place] medicaid and have not heard anything back. they will call when they have received a return call from [place] [employer]
--- NOTE | 2017-06-24 15:08 | NUR ---
DR TERRELL REQUESTING THIS NURSE CALL INFECTIOUS DISEASE DR TO CLEAR PT FOR CHEMO THERAPY ON 06/25/17. THIS NURSE SPOKE WITH MARGARET CARNEY WHO CLEARED PT FOR CHEMO. THIS NURSE CALLED DR TERRELL TO INFORM HIM OF THIS. THIS NURSE INFORMED PT OF HIS APPT, PER DR TERRELL.
--- NOTE | 2017-06-24 15:29 | NUR ---
called [facility] partners regarding approval for iv vancomycin, per Joie, she has not heard back from [place] med[employer] about the medication, per Joie, she will probably not hear anything until tomorrow
[2017-06-24 16:00] VITALS: BP 114/72
--- NOTE | 2017-06-24 16:36 | NUR ---
THIS NURSE CALLED DR TERRELL TO INFORM HIM THAT PT WILL NOT BE ABLE TO KEEP HIS APPT FOR CHEM ON 06/25/17 BECAUSE HE IS NOT BEING DISCHARGED TODAY.
[2017-06-24 20:00] VITALS: BP 120/71
--- NOTE | 2017-06-24 20:00 | NUR ---
PT AWAKE IN ROOM SITTING ON SIDE OF BED. DENIES ANY C/O PAIN/DISCOMFORT. PICC DRSG TO RUE DRY/INTACT. CALL LIGHT IN REACH.
[2017-06-25] VITALS: BP 115/74
--- NOTE | 2017-06-25 02:43 | NUR ---
24 HR chart check completed.
[2017-06-25 07:57] VITALS: BP 101/65
--- NOTE | 2017-06-25 08:00 | NUR ---
ASSESSMENT COMPLETED AND DOCUMENTED. SITTING UPRIGHT IN CHAIR, DENIES PAIN OR SOB. PATIENT UNCOOPERATIVE AND REFUSING BGM AND TEDS. AWAITING DISCHARGE.
--- NOTE | 2017-06-25 08:00 | NUR ---
ASSESSMENT COMPLETE. PT DENY NEEDS AT THIS TIME. SITTING UP IN CHAIR. LUNGS WHEEZING IN ALL BEJARANO. DENY COUGH. SOB NOTED WITH EXERTION ONLY. PT IS PALE. EDEMA LOWER EXTREMITIES +3 NOTED. PICC LINE TO RIGHT UPPER ARM INTACT, DRESSING DRY/INTACT. PT IS REFUSING FOR BLOOD SUGARS TO BE TAKEN. WILL CONTINUE TO MONITOR FOR NEEDS.
--- NOTE | 2017-06-25 08:10 | NUR ---
Shift chart check completed.
[2017-06-25 08:21] VITALS: BP 100/72
--- NOTE | 2017-06-25 08:56 | NUR ---
Contacted [facility] to notify the patient was not discharged as planned, will keep them informed as to when services will be needed.
[2017-06-25 09:52] VITALS: BP 104/72
--- NOTE | 2017-06-25 10:00 | NUR ---
case management received a call from Joie at [facility], patient's iv medication has been approved. they will deliver the patient's medication tomorrow for start of care, communications planner will notify [facility], patient will need his dose of iv medication today prior to discharge, informed his nurse, also informed hospitalist nurse director.
--- NOTE | 2017-06-25 10:07 | NUR ---
PATIENT UPRIGHT IN CHAIR, NO VERBAL COMPLAINTS, DOES NOT NEED ANYTHING AT THIS TIME. CHELSIE ANDERSONCC
--- NOTE | 2017-06-25 11:46 | NUR ---
Called [facility] and notified them patients IV meds have been approved. patient will received today's dose here at the hospital and their services will be needed tomorrow around 12:00 noon. Meds will be delivered to patients home [facility].
[2017-06-25 11:58] VITALS: BP 110/72
--- NOTE | 2017-06-25 12:00 | NUR ---
PATIENT RESTING UPRIGHTIN CHAIR, NO VERBAL COMPLAINTS, CALL LIGHT WITHIN REACH. PATIENT DOES NOT NEED ANYTHING AT THIS TIME. CHELSIE ANDERSONCC
--- NOTE | 2017-06-25 12:40 | NUR ---
VANCOMYCIN RUNNING INTO RIGHT PICC LINE. PERIPHERIAL IV IN RIGHT AC D/C, DRESSING APPLIED. PT STATES NO NEEDS AT THIS TIME. PT IS ABLE TO BE D/C HOME ONCE IV ANTIBIOTIC IS COMPLETE. PT AWARE AND STATES DAUGHTER CAN ELASTIC TAPE INSERTER THIS EVENING.
[2017-06-25 16:00] VITALS: BP 108/67
--- NOTE | 2017-06-25 16:14 | NUR ---
Discharge instructions reviewed with patient. Patient receptive and verbalizes understanding. Follow-up care arranged/understood Written instructions given to patient. PICC LINE in rightu upper arm, both ports flushed with heparin, good blood return to both ports. pt waiting for daughter to pecan picker. home blu to continue iv antibiotics tomorrow and picc line care. MARANDA PINTO
--- NOTE | 2017-06-25 16:50 | NUR ---
DAUGHER HERE TO RESPIRATORY CLINICIAN PATIENT. PT TAKEN TO FRONT ENTERENCE BY WHEELCHAIR
== END 2017-06-25 16:50 | disposition home health service (06) | DRG 314 ==
LOC: ED 09:44 → EDHOLD 12:10 → 4E 12:10
PROVIDERS: Family Medicine; Internal Medicine; Student in an Organized Health Care Education/Training Program; ADMIT Internal Medicine
PROC: 30233N1 Transfusion of Nonautologous Red Blood Cells into Peripheral Vein, Percutaneous Approach (ICD-10-PCS; 2017-06-19)
PROC: 0JPT0WZ Removal of Totally Implantable Vascular Access Device from Trunk Subcutaneous Tissue and Fascia, Open Approach (ICD-10-PCS; 2017-06-21)
PROC: 05PY33Z Removal of Infusion Device from Upper Vein, Percutaneous Approach (ICD-10-PCS; 2017-06-21)
PROC: 05H Upper Veins, Insertion (ICD-10-PCS; principal; 2017-06-24)
DX: T80.211A Bloodstream infection due to central venous catheter, initial encounter (principal); A41.9 Sepsis, unspecified organism; R65.20 Severe sepsis without septic shock; I50.23 Acute on chronic systolic (congestive) heart failure; E87.1 Hypo-osmolality and hyponatremia; D64.81 Anemia due to antineoplastic chemotherapy; C34.92 Malignant neoplasm of unspecified part of left bronchus or lung; I50.32 Chronic diastolic (congestive) heart failure; E11.9 Type 2 diabetes mellitus without complications; I11.0 Hypertensive heart disease with heart failure; F32.9 Major depressive disorder, single episode, unspecified; I25.10 Atherosclerotic heart disease of native coronary artery without angina pectoris; Y83.8 Other surgical procedures as the cause of abnormal reaction of the patient, or of later complication, without mention of misadventure at the time of the procedure; E03.9 Hypothyroidism, unspecified; I25.2 Old myocardial infarction; Z86.711 Personal history of pulmonary embolism; Z98.42 Cataract extraction status, left eye; Z98.41 Cataract extraction status, right eye; Z95.1 Presence of aortocoronary bypass graft; Z95.5 Presence of coronary angioplasty implant and graft; Z85.118 Personal history of other malignant neoplasm of bronchus and lung; Z82.49 Family history of ischemic heart disease and other diseases of the circulatory system; Z80.1 Family history of malignant neoplasm of trachea, bronchus and lung; Z87.891 Personal history of nicotine dependence; Z79.899 Other long term (current) drug therapy; Z83.3 Family history of diabetes mellitus; Y92.89 Other specified places as the place of occurrence of the external cause; Z85.05 Personal history of malignant neoplasm of liver; Z79.4 Long term (current) use of insulin

== ENCOUNTER 2017-06-27 16:02 | Inpatient (IN) | payer OTHER ==
[2017-06-27] VITALS (7 sets, daily range): BP systolic 118–144; BP diastolic 68–81
[~2017-06-27] VITALS: Ht 182.9 cm; Wt 90.7 kg
--- NOTE | ~2017-06-27 | CON ---
[place], [place] REPORT OF CONSULTATION NAME: TOBI GARIBAY UNIT #: [id number] ROOM: 512 DOCTOR: JOSELO TERRELL MD BIRTHDATE: [birth year] DOS: 06/28/2017 HISTORY OF PRESENT ILLNESS: This is a pleasant 61-year-old gentleman with a history of extensive small cell lung cancer along with a history of CHF. He was seen by the home nurse and he was told that his lungs do not look good. He had developed congestion. He also started complaining of shortness of breath for the past 2 days though he denied any hemoptysis. Subsequently, he came to the hospital and admitted. He was recently discharged from [facility] with a history of CHF on 06/24/2017. He was on PICC line for IV vancomycin. Chest x-ray showed stable mild enlargement of the cardiac silhouette, prominent pulmonary vasculature structures, and mild pulmonary edema. PAST MEDICAL HISTORY: Significant for coronary artery disease, combined systolic and diastolic congestive heart failure, chronic diverticulitis, extensive small cell lung cancer, essential hypertension, hypothyroidism and myocardial infarction and new pulmonary emboli. PAST SURGICAL HISTORY: Cataract, history of knee surgery, history of heart bypass surgery, history of CABG x 3, stenting for coronary artery disease. SOCIAL HISTORY: He was a former smoker, quit 9 years ago. He used to smoke 3 packets per day for 35 years. Denies any drug use or drinking. FAMILY HISTORY: Father at age 60 of lung cancer and myocardial infarction. Mother at age 60 of myocardial infarction. ALLERGIES: No allergies. MEDICATIONS: On calcium, enoxaparin, sodium, glipizide, lisinopril, megestrol acetate, metformin, pantoprazole sodium, pravastatin, sodium bicarbonate, ____ and vancomycin. REVIEW OF SYSTEMS CONSTITUTIONAL: No chills. No fatigue. No fever. No loss of appetite. No night sweats. No weakness. No weight loss. HEENT: No trouble swallowing. No loss of smell. No loss of hearing. No double vision. No pain. No discharge. ENT AND RESPIRATORY: No wheeze. No sore throat. No change in voice. No hearing loss. No nose bleed. No cough. No trouble breathing through nose. No shortness of breath. No coughing up blood. No epistaxis. CARDIOVASCULAR: No chest pain. No dizziness. No irregular heartbeat. No leg edema. No pain in legs while walking. No palpitations. No shortness of breath. DERMATOLOGIC: No acne. No hives. No laceration. No mole. No rash. ENDOCRINE: No cold intolerance. No diabetes. No fatigue. No hot flashes. No polydipsia. No polyuria. No urinating frequently. No weight loss. HEMATOLOGIC AND LYMPH: No fatigue. No easy bruising. GASTROENTEROLOGIC: No change in bowel habits. No indigestion. No frequent bloating. No vomiting blood. No abdominal cramping. No nausea. No heartburn. No vomiting. No abdominal pain. No dysphagia. No diarrhea. No constipation. [place], [place] REPORT OF CONSULTATION NAME: TOBI GARIBAY UNIT #: [id number] ROOM: [employer] DOCTOR: JOSELO TERRELL MD BIRTHDATE: [birth year] No blood in stool. MALE REPRODUCTIVE: No testicular pain. No difficulty with erection. No diminished sexual drive. No penile discharge. MUSCULOSKELETAL: No back pain. No muscle pain or weakness. No neck pain. No tingling/numbness. No swelling/bruising. No osteoporosis treatment. OPHTHALMOLOGIC: No double vision. No diminished vision. No loss of vision. UROLOGIC: No dysuria. No frequent nighttime urination. No pain with urination. No difficulty urinating. No blood in urine. No frequent urination. No urinary incontinence. NEUROLOGIC: No loss of sensation in specific body area. No vertigo. No burning pain in feet. No trouble with balance. No trouble with coordination. No loss of consciousness. No loss of feeling/power. No confusion. No headache. No tingling/numbness. PSYCHOLOGIC: No tinnitus. No headaches. No shortness of breath. No weight decrease. No nausea. No vomiting. No abdominal discomfort. No constipation. No diarrhea. No depression. No anxiety. PHYSICAL EXAMINATION: GENERAL: Pleasant gentleman in no apparent distress, mild short of breath. VITAL SIGNS: Stable, he is afebrile. HEENT: Oral mucosa appears intact. The external ears are normal in appearance. Nares are patent without lesions, exudates, erythema, or inflammation. Tongue is symmetrical. Uvula is midline. NECK AND THYROID: Neck supple without palpable masses. Trachea is midline. No thyromegaly. No carotid bruit or JVD. BREASTS: Normal. Nipples unremarkable. No drainage. No lumps felt on either side. HEART: Normal S1, S2, without significant murmur, rub, or gallop. LUNGS: Clear to auscultation and percussion with good air entry bilaterally. The patient is breathing easily without the use of accessory muscles. Diaphragmatic excursions are intact. ABDOMEN: No costovertebral angle tenderness. Soft. No organomegaly or masses. Nontender. No hernias present. Liver and spleen are not palpable. LYMPHATIC: No adenopathy noted in the cervical, supraclavicular, axillary, or inguinal regions. NEUROLOGIC: Nonfocal. Oriented to person, place, and time. MENTAL STATUS: Appropriate for mood and affect. PERIPHERAL PULSES: No varicosities. Femoral and pedal pulses are palpable. EXTREMITIES: Without cyanosis, clubbing, or edema. No gross anomalies. LABORATORY DATA: White count of 10.5, hemoglobin 7.8, hematocrit 24.8, platelet count 207,000. ASSESSMENT: 1. Extensive small cell lung cancer. 2. Sepsis. 3. Healthcare-associated pneumonia. 4. Anemia of neoplastic disorder. 5. Chemo is on hold, we will wait for his overall condition to improve. If hemoglobin and hematocrit drops further, may need transfusion. We will continue [place], [place] REPORT OF CONSULTATION NAME: TOBI GARIBAY UNIT #: [id number] ROOM: [employer] DOCTOR: JOSELO TERRELL MD BIRTHDATE: [birth year] Lovenox at 40 mg b.i.d. Blood cultures are pending. Ample time was given to the patient to ask me questions. We will follow. Thanks for consulting and letting me participate in the care of this interesting patient. JOSELO TERRELL MD CM:CONSTR:REPORT OF CONSULTATION 1416 06/29/17 0731 interface
--- NOTE | ~2017-06-27 | PR ---
[place], [place] PROGRESS NOTE [facility]: [id number] UNIT #: [id number] ROOM: 512 DOCTOR: JOSELO TERRELL MD BIRTHDATE: [birth year] DOS: 07/01/2017 SUBJECTIVE: The patient is doing much better. He is awake, alert, responsive, sitting in the chair. REVIEW OF SYSTEMS HEENT: No trouble swallowing. No double vision. No loss of vision. No pain. ENT AND RESPIRATORY: No wheeze. No change in voice. No cough. No shortness of breath. No coughing up blood. No epistaxis. CARDIOLOGIC: No chest pain. No dizziness. No irregular heartbeat. No leg edema. No palpitations. No shortness of breath. HEMATOLOGIC AND LYMPH: No past transfusion. No fatigue. No loss of appetite. No easy bruising. GASTROENTEROLOGIC: No change in bowel habits. No vomiting blood. No abdominal cramping. No nausea. No vomiting. No diarrhea. No constipation. No blood in stool. MALE REPRODUCTIVE: No testicular pain. No penile discharge. MUSCULOSKELETAL: No back pain. No muscle pain or weakness. No tingling/numbness. UROLOGIC: No pain with urination. No difficulty urinating. No frequent urination. NEUROLOGIC: No burning pain in feet. No trouble with coordination. No loss of consciousness. No headache. No tingling/numbness. No memory loss. PHYSICAL EXAMINATION GENERAL: Pleasant gentleman in no apparent distress. VITAL SIGNS: Stable, afebrile. HEENT: Normocephalic, atraumatic NECK AND THYROID: Supple. No JVD, thyromegaly, or lymphadenopathy. HEART: Normal S1, S2. Regular rate and rhythm. LUNGS: Clear to auscultation and percussion. ABDOMEN: Soft. Nontender, nondistended. Bowel sounds present. EXTREMITIES: Normal ROM. No clubbing. No edema. LABORATORY DATA: White count of 14.5, hemoglobin 7.7, hematocrit 24.6, platelet count 227. Chemistry: Glucose 163. EGFR is 49. Sodium 129, potassium 4.9, chloride 99, bicarbonate 21, calcium 8.8. ASSESSMENT: 1. Extensive small cell lung cancer. 2. Anemia of neoplastic disorder. 3. Sepsis. 4. Leukocytosis, reactive. PLAN: He is getting broad-spectrum antibiotics. Pulmonary blood cultures were negative. Chemotherapy is on hold until his overall condition improves. Hemoglobin and hematocrit are stable. We will keep a close watch at this time. If anything changes, then further intervention. Discussed with the patient. I agree with the plan. [place], [place] PROGRESS NOTE NAME: TOBI GARIBAY UNIT #: [id number] ROOM: 512 DOCTOR: JOSELO TERRELL MD BIRTHDATE: [birth year] JOSELO TERRELL MD CM:GRABIEL [id number] 2 JOSELO TERRELL MD 07/02/174 interface
--- NOTE | ~2017-06-27 | PR ---
[place], [place] PROGRESS NOTE [id number] UNIT #: [id number] ROOM: 512 DOCTOR: JOSELO TERRELL MD BIRTHDATE: [birth year] DOS: 07/02/2017 SUBJECTIVE: The patient is doing much better. He is awake, alert and responsive. He is sitting in the chair. PHYSICAL EXAMINATION: GENERAL: Pleasant gentleman in no apparent distress. VITAL SIGNS: Stable. Afebrile. HEENT: Normocephalic, atraumatic NECK AND THYROID: Supple. No JVD, thyromegaly, or lymphadenopathy. HEART: Normal S1, S2. Regular rate and rhythm. LUNGS: Clear to auscultation and percussion. ABDOMEN: Soft. Nontender, nondistended. Bowel sounds present. EXTREMITIES: Normal ROM. No clubbing. No edema. LABORATORY DATA: White count of 14.5, hemoglobin 7.7, hematocrit 24.6, platelet count of 227. ASSESSMENT: 1. Extensive small cell lung cancer. 2. Sepsis. 3. Anemia of neoplastic disorder/secondary to chemotherapy. 4. Hypothyroidism. 5. Leukocytosis, ____. PLAN: I would continue broad spectrum antibiotics. Overall, he is doing much better. He may be discharged in the next 24 hours. We will follow him as outpatient. If he feels good and finish his antibiotics, then we will proceed to chemotherapy. I had detailed discussion with the patient about it, he seemed to understand it. Ample time was given for the patient to ask me questions. JOSELO TERRELL MD CM:PNTRANS [phone] JOSELO TERRELL MD 07/03/17 0158 interface
[~2017-06-27 16:02] MED LIST changes: +ENOXAPARIN40 MG/0.2 SQ; +VANCOMYCIN2 GM/500 M IV
[2017-06-27 16:57] LABS: BASO # 0.1 10*3/uL (0.0-0.1); BASO % 0.5 % (0.0-1.0); EOS % 0.4 % (1.0-4.0); HEMATOCRIT 23.9 % (42.0-52.0); HEMOGLOBIN 7.7 g/dl (14.0-18.0); LYMPH # 0.5 10*3/uL (1.3-4.4); LYMPH % 5.3 % (27.0-41.0); MEAN CELL VOLUME 90.9 fl (80.0-94.0); MEAN CORPUSCULAR HGB 29.3 pg (27.0-31.0); MEAN CORPUSCULAR HGB CONC 32.2 g/dl (33.0-37.0); MEAN PLATELET VOLUME 10.1 fl (9.6-12.3); MONO # 0.8 10*3/uL (0.1-1.0); MONO % 7.6 % (3.0-9.0); NEUT # 8.6 10*3/uL (2.3-7.9); NEUT % 84.8 % (47.0-73.0); PLATELET COUNT AUTOMATED 226 10*3/uL (130-400); RED BLOOD COUNT 2.63 10*6/uL (4.50-5.90); RED CELL DISTRI WIDTH 17.8 % (0-14.5); WHITE BLOOD COUNT 10.1 10*3/uL (4.8-10.8)
[2017-06-27 17:11] LABS: ALBUMIN 2.7 gm/dl (3.1-4.5); ALKALINE PHOSPHATASE 119 U/L (45-117); BUN 18 mg/dl (7-24); CHLORIDE 97 mmol/L (98-107); CREATININE 0.91 mg/dL (0.70-1.30); POTASSIUM 4.2 mmol/L (3.5-5.1); SGOT/AST 16 IU/L (3-35); SGPT/ALT 32 U/L (12-78); SODIUM 127 mmol/L (136-145); TOTAL PROTEIN 6.4 gm/dL (6.4-8.2)
[2017-06-27 17:17] LABS: TROPONIN I < 0.015 ng/ml (<0.045)
--- NOTE | 2017-06-27 19:39 | NUR ---
PAIENT BEING ADMITTED, REPORT CALLED UP BY JAREN RN, VANCO 1 GM IN 250 NS AND PIPERACILLIN / TAZOBACTAM 3.375GM IN 100 ML D5 SENT TO FLOOR WITH PATIENT
--- NOTE | 2017-06-27 19:55 | NUR ---
[facility] , under the services of SHARON Mathur DO with a diagnosis of HYPONATREMIA, HCAP, CHRONIC ANEMIA. Chief complaint is SHORTNESS OF BREATH. Patient arrived via ambulatory from ER. Monitor applied. Initial assessment completed. Vital signs taken and recorded. SHARON MATHUR DO notified of admission to the unit. Orders received. See assessment for past medical history, medications and allergies. Patient and/or family oriented to unit. [address] visitation policy reviewed. Clothing/patient valuable form completed. PAYTON SILVA
--- NOTE | 2017-06-27 20:00 | NUR ---
PATIENT REFUSES A FULL SKIN ASSESSMENT. STATES THAT HE DOES NOT HAVE ANY WOUNDS AND THAT HE CHRIS SNOT WANT BOTHERED AT THIS TIME. NO VISIBLE WOUNDS.
--- NOTE | 2017-06-27 20:38 | NUR ---
ATTEMPTED TO REVIEW LEN HOME MEDICATIONS, AUTUMN STATES I DO NOT KNOW THE NAMES OF ANY OF MY MEDICATIONS, I CAN ONLY TELL YOU THAT I USE [facility]. DR. MUKHERJEE NOTIFIED IN PERSON AT THIS TIME THAT THIS STORMYETN DOES NOT KNOW HIS MEDICATIONS. DR. MUKHERJEE STATES OK HAVE SOMEONE VERIFY WITH HIS PHARMACY IN THE MORNING.
--- NOTE | 2017-06-27 22:05 | NUR ---
RN NOTIFIED DR TERRELL OF CONSULT. NO NEW ORDERS RECEIVED AT THIS TIME. DR TERRELL WILL SEE PT 06/28/17
[2017-06-28] VITALS: BP 109/68
[2017-06-28 04:00] VITALS: BP 130/74
--- NOTE | 2017-06-28 06:37 | NUR ---
PT SITTTING UP IN CHAIR. NO DISTRESS NOTED. CALL LIGHT IN REACH.
[2017-06-28 06:52] LABS: HEMATOCRIT 24.8 % (42.0-52.0); HEMOGLOBIN 7.8 g/dl (14.0-18.0); MEAN CELL VOLUME 90.8 fl (80.0-94.0); MEAN CORPUSCULAR HGB 28.6 pg (27.0-31.0); MEAN CORPUSCULAR HGB CONC 31.5 g/dl (33.0-37.0); MEAN PLATELET VOLUME 9.9 fl (9.6-12.3); PLATELET COUNT AUTOMATED 207 10*3/uL (130-400); RED BLOOD COUNT 2.73 10*6/uL (4.50-5.90); RED CELL DISTRI WIDTH 17.7 % (0-14.5); WHITE BLOOD COUNT 10.5 10*3/uL (4.8-10.8)
[2017-06-28 07:20] LABS: CHLORIDE 96 mmol/L (98-107); POTASSIUM 4.7 mmol/L (3.5-5.1); SODIUM 127 mmol/L (136-145)
[2017-06-28 07:36] LABS: ALBUMIN 2.6 gm/dl (3.1-4.5); ALKALINE PHOSPHATASE 116 U/L (45-117); BUN 16 mg/dl (7-24); PHOSPHOROUS 3.6 mg/dL (2.5-4.9); SGOT/AST 13 IU/L (3-35); SGPT/ALT 28 U/L (12-78); TOTAL PROTEIN 6.3 gm/dL (6.4-8.2)
[2017-06-28 08:00] VITALS: BP 122/64
--- NOTE | 2017-06-28 08:00 | NUR ---
OOB TO CHAIR, LEGS ELEVATED, EASY RESPIRATIONS WITH SKIN W/D, COLOR IS PALE/YELLOW. PT STATES COUGHING UP BLOOD, INSTRUCTED TO PERMIT STAFF TO VIEW IF HE COUGHS BLOOD AGAIN. CALL LIGHT SYSTEM WITHIN REACH. PT INSTUCTED ON ISOLATIN PRECAUTIONS, VOICES DISSATISFACTION & IS RUDELY YELLING AT STAFF BC HE IS IN ISOLATION.
[2017-06-28 08:01] LABS: PLATELET SUFFICIENCY NORMAL (NORMAL); POLYCHROMASIA SLIGHT; TOTAL CELLS COUNTED 100 #CELLS
[2017-06-28 08:31] LABS: VITAMIN D, 25-HYDROXY 23.4 ng/mL (30-100)
--- NOTE | 2017-06-28 09:00 | NUR ---
Towel Folder in to talk to patient. Patient states lives at home with daughter and grandchildren. There are few steps in the home. Physician: felix nicole Pharmacy: [facility] health services: [facility] Patient's level of ADLs: MINIMAL ASSIST Patient has working utilities: all working DME: walker/cane Follow-up physician's appointment after d/c: will be made by hospitalist nurse director upon discharge Does patient want to access PORTAL?: no Discharge plan discussed with patient, patient lives at home with family, was recently discharged from the hospital and was doing iv antibiotics at home, also had [facility], discussed with patient a short term fpc for rehab prior to going back home and patient refused, stated he was going back home and wanted home health to continue, assortment planner/web content & social media manager will make referral to [facility] and let them know when patient is medically stable for discharge. DARRIN HENRY
[2017-06-28 12:00] VITALS: BP 126/80
--- NOTE | 2017-06-28 12:57 | NUR ---
TODAY, PT HAS ADAMANTLY REFUSED TO BATHE, REFUSED TEDS & REFUSES TO GET OUT OF CHAIR FOR STAFF TO VIEW SKIN. PT IS VERBALLY AGGRESSIVE AT TINES.
--- NOTE | 2017-06-28 13:48 | NUR ---
PT WAS ASKED TO WEAR A MASK TO RADIOLOGY DEPT & ADAMANTLY REFUSED.
[2017-06-28 16:00] VITALS: BP 112/65
[2017-06-28] MEDS ORDERED: LANTUS SOL100 UNIT/1 SC (17:14)
--- NOTE | 2017-06-28 17:16 | NUR ---
DR HAM NOTIFIED THAT HOME MEDICATOIN LIST UPDATED WITH [facility].
--- NOTE | 2017-06-28 17:21 | NUR ---
DR TERRELL AWARE OF CONSULT & INFORMED OF CT RESULTS. REQUESTS THAT THIS CT BE COMPARED TO LAST CT.
[2017-06-28 20:00] VITALS: BP 110/67
--- NOTE | 2017-06-28 20:00 | NUR ---
LAB RESULTS AND ORDERS REVIEWED
--- NOTE | 2017-06-28 22:07 | NUR ---
DR SALGADO NOTIFIED OF GLUCOSE 738. ORDERS RECEIVED 30 UNITS INSULIN NOW. SEE EMAR FOR FURTHER DOCUMENTATION
--- NOTE | 2017-06-28 23:15 | NUR ---
DR SALGADO NOTIFIED OF UNREADABLE GLUCOSE ON MACHINE. REFLEX ORDERED. WILL NOTIFY OF NEW RESULTS JEAN.
[2017-06-29] VITALS: BP 130/64
--- NOTE | 2017-06-29 00:33 | NUR ---
DR SALGADO NOTIFIED OF GLUCOSE 599. ORDERS RECEIVED 14 UNITS NOW AND REPEAT GLUCOSE IN 1 HR.
[2017-06-29 03:56] LABS: HEMATOCRIT 23.7 % (42.0-52.0); HEMOGLOBIN 7.5 g/dl (14.0-18.0); MEAN CELL VOLUME 91.2 fl (80.0-94.0); MEAN CORPUSCULAR HGB 28.8 pg (27.0-31.0); MEAN CORPUSCULAR HGB CONC 31.6 g/dl (33.0-37.0); PLATELET COUNT AUTOMATED 223 10*3/uL (130-400); RED CELL DISTRI WIDTH 17.9 % (0-14.5); WHITE BLOOD COUNT 10.5 10*3/uL (4.8-10.8)
[2017-06-29 04:08] LABS: CREATININE 1.74 mg/dL (0.70-1.30); POTASSIUM 5.2 mmol/L (3.5-5.1)
[2017-06-29 04:12] VITALS: BP 112/72
[2017-06-29 04:29] LABS: MICROCYTOSIS SLIGHT; TOTAL CELLS COUNTED 100 #CELLS
[2017-06-29 04:30] LABS: PLATELET SUFFICIENCY NORMAL (NORMAL)
[2017-06-29 08:00] VITALS: BP 113/73
--- NOTE | 2017-06-29 10:38 | NUR ---
PICC LINE DRESSING CHANGED WITH NO INCIDENTS. PT TOLERATED WELL.
[2017-06-29 12:00] VITALS: BP 119/75
--- NOTE | 2017-06-29 15:45 | NUR ---
ASSUMED CARE OF PATIENT. PATIENT SITTING UP IN CHAIR UPON ASSESSMENT. DENIES SOB AND PAIN.
[2017-06-29 16:00] VITALS: BP 122/78
--- NOTE | 2017-06-29 18:22 | NUR ---
RECEIVED A CRITICAL VANCO TROUGH LEVEL FROM LAB OF 39.7. CALLED PHARMACY TO LET THEM KNOW SO THEY COULD ADJUST THE DOSAGE, PHARMACIST DESTINY SAID TO TURN OFF CURRENT VANCO INFUSION. TRIED CALLING DOCTOR AND COULD NOT GET AHOLD OF HIM. WILL CONTINUE TO CALL TO MAKE DOCTOR AWARE.
--- NOTE | 2017-06-29 18:50 | NUR ---
CALLED DR. GU AND MADE HIM AWARE OF PATIENT'S CRITICAL VANCO TROUGH OF 39.7.
[2017-06-29 18:58] LABS: BILIRUBIN NEGATIVE (NEGATIVE); BLOOD NEGATIVE (NEGATIVE); CLARITY CLEAR (CLEAR); COLOR YELLOW (YELLOW); GLUCOSE 3+ (NEGATIVE); KETONE NEGATIVE (NEGATIVE); LEUKO ESTERASE NEGATIVE (NEGATIVE); NITRITE NEGATIVE (NEGATIVE); PH 5.5 (5.0-9.0); UROBILINOGEN 0.2 E.U./dl (0.2-1.0)
[2017-06-29 19:07] LABS: BACTERIA TRACE
[2017-06-29 19:08] LABS: EPITHELIAL CELLS 0-2; RBC 0-2 rbc/hpf (0-2)
[2017-06-29 20:00] VITALS: BP 114/70
[2017-06-30] VITALS: BP 117/72
--- NOTE | 2017-06-30 01:19 | NUR ---
PT RECEIVED NORCO FOR HEADACHE. PAIN RATED 6/10.
--- NOTE | 2017-06-30 01:56 | NUR ---
PT STATES NORCO WAS EFFECTIVE.
[2017-06-30 06:27] LABS: CREATININE 1.55 mg/dL (0.70-1.30); POTASSIUM 5.1 mmol/L (3.5-5.1)
[2017-06-30 08:00] VITALS: BP 117/77
--- NOTE | 2017-06-30 08:00 | NUR ---
AWAKE ALERT AND ORIENTED X3, OOB IN CHAIR. NO C/O. NO S/S OF DISTRESS. WILL CONT TO MONITOR. CALL LIGHT IN REACH. SEE ASSESS.
[2017-06-30 08:58] LABS: HEMATOCRIT 24.8 % (42.0-52.0); HEMOGLOBIN 7.7 g/dl (14.0-18.0); MEAN CELL VOLUME 92.5 fl (80.0-94.0); MEAN CORPUSCULAR HGB 28.7 pg (27.0-31.0); MEAN PLATELET VOLUME 10.6 fl (9.6-12.3); PLATELET COUNT AUTOMATED 225 10*3/uL (130-400); RED BLOOD COUNT 2.68 10*6/uL (4.50-5.90); RED CELL DISTRI WIDTH 18.2 % (0-14.5); WHITE BLOOD COUNT 14.1 10*3/uL (4.8-10.8)
[2017-06-30 09:19] LABS: PLATELET SUFFICIENCY NORMAL (NORMAL); POLYCHROMASIA SLIGHT; SCHISTOCYTES FEW; TOTAL CELLS COUNTED 100 #CELLS
[2017-06-30 12:00] VITALS: BP 126/76
[2017-06-30 16:00] VITALS: BP 120/72
[2017-06-30 20:00] VITALS: BP 113/65
[2017-07-01] VITALS: BP 119/76
[2017-07-01 06:41] LABS: BASO % 0.1 % (0.0-1.0); HEMATOCRIT 24.6 % (42.0-52.0); HEMOGLOBIN 7.7 g/dl (14.0-18.0); LYMPH # 0.3 10*3/uL (1.3-4.4); LYMPH % 2.3 % (27.0-41.0); MEAN CELL VOLUME 91.1 fl (80.0-94.0); MEAN CORPUSCULAR HGB 28.5 pg (27.0-31.0); MEAN CORPUSCULAR HGB CONC 31.3 g/dl (33.0-37.0); MEAN PLATELET VOLUME 9.9 fl (9.6-12.3); MONO % 6.8 % (3.0-9.0); NEUT % 89.5 % (47.0-73.0); PLATELET COUNT AUTOMATED 227 10*3/uL (130-400); RED CELL DISTRI WIDTH 18.3 % (0-14.5); WHITE BLOOD COUNT 14.5 10*3/uL (4.8-10.8)
[2017-07-01 07:16] LABS: CREATININE 1.46 mg/dL (0.70-1.30); POTASSIUM 4.9 mmol/L (3.5-5.1)
--- NOTE | 2017-07-01 07:21 | NUR ---
REFUSED INSULIN COVERAGE.
[2017-07-01 08:00] VITALS: BP 101/60
--- NOTE | 2017-07-01 08:00 | NUR ---
IN CHAIR AWAKE ALERT AND ORIENTED X3, GRUFF AT TIMES. NO S/S OF DISTRESS. STATES HE WANTS TO GO HOME AND IS GOING TO ASK THE DR IF HE CAN TODAY. WILL CONT TO MONITOR. CALL LIGHT IN REACH. SEE ASSESS.
--- NOTE | 2017-07-01 09:00 | NUR ---
case management visits with patient, patient states he will be going back home and wants home health to continue
--- NOTE | 2017-07-01 09:03 | NUR ---
PHYSICAL THERAPY PAtient aggressive when approached by PT " No, I just want out of here... this is bullshit". " I have been up and I don't need therapy". Will monitor and attempt at a later date. Thank you for this referrral. Nancy Kim,PT
--- NOTE | 2017-07-01 09:06 | NUR ---
Patient approached for Occupational Therapy evaluation this date. He refused OT evaluation stating "I just want out of here, This is bullshit". OTR will attempt at a later time. Angela Guy OTR/no
--- NOTE | 2017-07-01 11:43 | NUR ---
BS 284 AND PATIENT REFUSED COVERAGE
[2017-07-01 12:00] VITALS: BP 117/69
[2017-07-01 16:00] VITALS: BP 123/72
[2017-07-01 20:00] VITALS: BP 115/66
--- NOTE | 2017-07-01 22:30 | NUR ---
PT. AGREED TO TAKE ONLY 5 UNIT OF REGULAR INSULIN AND NOT THE 10 UNITS THAT THE ORDER CALLED FOR.
[2017-07-02] VITALS: BP 120/68
[2017-07-02 08:00] VITALS: BP 133/72
--- NOTE | 2017-07-02 09:17 | NUR ---
PHYSICAL THERAPY PAtient aggressively refusing PT. D/c PT orders at this time as patient has no intention on particpating. Thank you for this referral. Nancy Kim,PT
--- NOTE | 2017-07-02 09:17 | NUR ---
Patient approached for Occupational Therapy evaluation this am with patient ademently refusing stating "I don't want to walk". Nursing reports that he is independent in mobility to bathroom and in his room. D/C OT referral d/t patients refusal. Thank you for this referral. Angela Guy OTR/l
[2017-07-02 12:00] VITALS: BP 140/76
[2017-07-02] MEDS ORDERED: MUCINEX ER600 MG PO (12:38)
[2017-07-02] MEDS ORDERED: VANCOMYCIN1.5 GM/251 IV (12:50)
--- NOTE | 2017-07-02 13:13 | NUR ---
Patient being discharged to home to resume home health and IV ATB with [facility] health agency. Faxed order and clinicals.
--- NOTE | 2017-07-02 15:25 | NUR ---
Discharge instructions reviewed with patient/family. Patient receptive and verbalizes understanding. Follow-up care arranged. Written instructions given to patient/family. JAREN LARSEN
--- NOTE | 2017-07-03 11:33 | NUR ---
Received script for Vancomycin trough now 07/03/17 to fax to [facility]. Notified [facility] and faxed script.
== END 2017-07-02 15:25 | disposition home health service (06) | DRG 871 ==
LOC: ED 16:02 → EDHOLD 18:49 → 5E 18:49
PROVIDERS: Family Medicine; Hospitalist; Internal Medicine; Nurse Practitioner; Student in an Organized Health Care Education/Training Program; ADMIT Internal Medicine
DX: A41.9 Sepsis, unspecified organism (principal); D61.810 Antineoplastic chemotherapy induced pancytopenia; N17.0 Acute kidney failure with tubular necrosis; E43 Unspecified severe protein-calorie malnutrition; J15.6 Pneumonia due to other Gram-negative bacteria; C78.7 Secondary malignant neoplasm of liver and intrahepatic bile duct; I50.42 Chronic combined systolic (congestive) and diastolic (congestive) heart failure; C34.92 Malignant neoplasm of unspecified part of left bronchus or lung; E87.1 Hypo-osmolality and hyponatremia; E11.8 Type 2 diabetes mellitus with unspecified complications; R65.20 Severe sepsis without septic shock; E03.9 Hypothyroidism, unspecified; E87.8 Other disorders of electrolyte and fluid balance, not elsewhere classified; I25.10 Atherosclerotic heart disease of native coronary artery without angina pectoris; Z98.42 Cataract extraction status, left eye; Z98.41 Cataract extraction status, right eye; Z95.1 Presence of aortocoronary bypass graft; I25.2 Old myocardial infarction; Z86.711 Personal history of pulmonary embolism; Z79.84 Long term (current) use of oral hypoglycemic drugs; Z79.899 Other long term (current) drug therapy; Z68.34 Body mass index [BMI] 34.0-34.9, adult; Z87.891 Personal history of nicotine dependence; Z79.4 Long term (current) use of insulin; Z95.5 Presence of coronary angioplasty implant and graft; Z82.49 Family history of ischemic heart disease and other diseases of the circulatory system; Z82.3 Family history of stroke; Z83.3 Family history of diabetes mellitus; Z80.1 Family history of malignant neoplasm of trachea, bronchus and lung